=== PATIENT | male | born 1985 | race Hispanic/Latino ===

== ENCOUNTER 2020-08-10 00:35 | Emergency (ER) | payer BC, SELFPAY ==
[2020-08-10 01:41] LABS: Absolute Lymphocytes (CBC) 3.2 K/uL (0.7-4.9); Basophils % 0.4 % (0-1.3); Hematocrit 44.3 % (39.6-49.0); Lymphocytes % 28.1 % (15.3-44.8); MPV 7.7 fL (7.6-11.3); RBC Red Blood Cell Count 4.94 M/uL (4.33-5.43)
[2020-08-10 01:42] LABS: Protime INR 0.99
[2020-08-10] MEDS ORDERED: ONDANSETRON 4 MG/2 ML VIAL ONE (01:48)
[2020-08-10] MEDS ORDERED: MORPHINE 4 MG/ML SYR ONE (01:48)
[2020-08-10 01:56] LABS: BUN Blood Urea Nitrogen 17 mg/dL (7-18); Bicarbonate 26 mmol/L (21-32); Glucose Level 98 mg/dL (74-106); NT PRO-BNP 7 pg/mL (<125); Potassium 3.8 mmol/L (3.5-5.1); Sodium Level 139 mmol/L (136-145); Troponin (Emerg Dept Use Only) < 0.02 ng/mL (0.0-0.045)
--- NOTE | 2020-08-10 03:07 | ER ---
Nurse's Notes [facility] Name: Cesar Jackson Age: 35 yrs Sex: Male : 1985 Arrival Date: 08/10/2020 Time: 00:37 Bed 14 Private MD: Diagnosis: Chest pain, unspecified Presentation: 08/10 01:03 Chief complaint: Patient states: he started having chest and back pain earlier today bb which got worse tonight when he lay down. Coronavirus screen: At this time, the client does not indicate any symptoms associated with coronavirus-19. Ebola Screen: No symptoms or risks identified at this time. Initial Sepsis Screen: Does the patient meet any 2 criteria? RR > 20 per min. Does the patient have a suspected source of infection? No. Patient's initial sepsis screen is negative. Risk Assessment: Do you want to hurt yourself or someone else? Patient reports no desire to harm self or others. Onset of symptoms was August 09, 2020. 01:03 Method Of Arrival: Ambulatory bb 01:03 Acuity: EDUARDO 3 bb Historical: - Allergies: 01:06 No Known Allergies; bb - Home Meds: 01:06 Lisinopril Oral [Active]; bb - PMHx: 01:06 Hypertension; bb - PSHx: 01:06 Elbow surgery; bb - Immunization history:: Adult Immunizations up to date. - Social history:: Smoking status: Patient reports the use of cigarette tobacco products, denies chronic smoking, but will smoke occasionally, Patient uses alcohol, occasionally. Patient/guardian denies using street drugs. - Family history:: not pertinent. - Hospitalizations: : No recent hospitalization is reported. Screenin:10 Abuse screen: Denies threats or abuse. Nutritional screening: No deficits noted. jb4 Tuberculosis screening: No symptoms or risk factors identified. Fall Risk None identified. Assessment: 01:10 General: Appears in no apparent distress. uncomfortable, Behavior is calm, cooperative, jb4 appropriate for age. Pain: Complains of pain in chest Pain does not radiate. Pain currently is 8 out of 10 on a pain scale. Quality of pain is described as sharp, stabbing. Neuro: Level of Consciousness is awake, alert, obeys commands, Oriented to person, place, time, situation. Cardiovascular: Patient's skin is warm and dry. Respiratory: Airway is patent Respiratory effort is even, unlabored, Respiratory pattern is regular, symmetrical. GI: No signs and/or symptoms were reported involving the gastrointestinal system. : No signs and/or symptoms were reported regarding the genitourinary system. EENT: No signs and/or symptoms were reported regarding the EENT system. Derm: Skin is intact, Skin is pink, warm \T\ dry. Musculoskeletal: Circulation, motion, and sensation intact. Range of motion: intact in all extremities. 01:50 Reassessment: Patient appears in no apparent distress at this time. Patient and/or jb4 family updated on plan of care and expected duration. Pain level reassessed. Patient is alert, oriented x 3, equal unlabored respirations, skin warm/dry/pink. 04:00 Reassessment: Patient appears in no apparent distress at this time. Patient and/or jb4 family updated on plan of care and expected duration. Pain level reassessed. Patient is alert, oriented x 3, equal unlabored respirations, skin warm/dry/pink. Vital Signs: 01:03 BP 141 / 104; Pulse 87; Resp 22 S; Temp 98.6(O); Pulse Ox 98% on R/A; Weight 113.4 kg bb (R); Height 5 ft. 6 in. (167.64 cm) (R); Pain 8/10; 01:45 BP 122 / 90; Pulse 81; Resp 20; Pulse Ox 95% on R/A; jb4 03:45 BP 140 / 90; Pulse 64; Resp 16; Pulse Ox 95% on R/A; jb4 01:03 Body Mass Index 40.35 (113.40 kg, 167.64 cm) bb ED Course: 00:37 Patient arrived in ED. cl3 00:53 Brant Moss MD is Attending Physician. rn 01:05 Triage completed. bb 01:06 Arm band placed on Patient placed in an exam room, on a stretcher, on weigher production, bb on pulse oximetry. EKG completed in triage. Results shown to MD. 01:10 Patient has correct armband on for positive identification. territory outside sales manager on. Pulse jb4 ox on. NIBP on. 01:10 Patient maintains SpO2 saturation greater than 95% on room air. jb4 01:18 Inserted saline lock: 20 gauge in right antecubital area, using aseptic technique. jb5 Blood collected. 01:19 Basic Metabolic Panel Sent. jb5 01:19 CBC with Diff Sent. jb5 01:19 NT PRO-BNP Sent. jb5 01:19 PT-INR Sent. jb5 01:19 Troponin (emerg Dept Use Only) Sent. jb5 01:31 Lio Sams, RN is Primary Nurse. jb4 01:49 XRAY Chest (1 view) In Process Unspecified. EDMS 02:37 CT Chest For PE Angio In Process Unspecified. EDMS 04:02 No provider procedures requiring assistance completed. IV discontinued, intact, jb4 bleeding controlled, No redness/swelling at site. Pressure dressing applied. Administered Medications: 01:40 Drug: Zofran (Ondansetron) 4 mg Route: IVP; Site: right antecubital; jb4 02:10 Follow up: Response: No adverse reaction jb4 01:43 Drug: morphine 4 mg Route: IVP; Site: right antecubital; jb4 02:10 Follow up: Response: No adverse reaction; Pain is decreased; RASS: Alert and Calm (0) jb4 03:54 Drug: Decadron - Dexamethasone 10 mg Route: IVP; Site: right antecubital; jb4 03:55 Follow up: Response: No adverse reaction; Medication administered at discharge. jb4 03:54 Drug: [place] 5 mg-325 mg 1 tabs Route: PO; jb4 03:55 Follow up: Response: Medication administered at discharge. jb4 03:54 Drug: TORadol - Ketorolac 15 mg Route: IVP; Site: right antecubital; jb4 03:55 Follow up: Response: Medication administered at discharge. jb4 Outcome: 03:06 Discharge ordered by . rn 04:02 Discharged to home with family. jb4 04:02 Condition: stable 04:02 Discharge instructions given to patient, Instructed on discharge instructions, follow up and referral plans. medication usage, Demonstrated understanding of instructions, follow-up care, medications, Prescriptions given X 2. 04:03 Patient left the ED. jb4 Signatures: Dispatcher [employer] EDЮлия Pavon RN RN bb Nieto, Roman, MD MD rn Bryson, James, RN RN jb4 Caryl Good jb5 Filomena Hamm 3
--- NOTE | 2020-08-10 03:07 | EDPHYS ---
Physician Documentation [facility] Name: Cesar Jackson Age: 35 yrs Sex: Male : 1985 Arrival Date: 08/10/2020 Time: 00:37 Bed 14 Private MD: ED Physician Brant Moss HPI: 08/10 01:40 This 35 yrs old Male presents to ER via Ambulatory with complaints of Chest rn Pain. 01:40 The patient or guardian reports chest pain that is located primarily in the substernal rn area. The pain radiates to back. Associated signs and symptoms: Pertinent positives: None. Pertinent negatives: abdominal pain, cough, diaphoresis, shortness of breath, syncope, vomiting. The chest pain is described as sharp. Duration: The patient or guardian reports multiple episodes, that are intermittent. Modifying factors: The symptoms are alleviated by leaning forward. the symptoms are aggravated by movement, laying down on back. Severity of pain: At its worst the pain was moderate in the emergency department the pain is unchanged. The patient has not experienced similar symptoms in the past. The patient has not recently seen a physician. Sudden onset left chest pain, radiates to back, no trauma, reports occasional smoker, no cough, does not feel ill. . Historical: - Allergies: 01:06 No Known Allergies; bb - Home Meds: 01:06 Lisinopril Oral [Active]; bb - PMHx: 01:06 Hypertension; bb - PSHx: 01:06 Elbow surgery; bb - Immunization history:: Adult Immunizations up to date. - Social history:: Smoking status: Patient reports the use of cigarette tobacco products, denies chronic smoking, but will smoke occasionally, Patient uses alcohol, occasionally. Patient/guardian denies using street drugs. - Family history:: not pertinent. - Hospitalizations: : No recent hospitalization is reported. ROS: 01:40 Constitutional: Negative for fever, chills, and weight loss, Eyes: Negative for injury, rn pain, redness, and discharge, Neck: Negative for injury, pain, and swelling, Cardiovascular: Negative for palpitations, and edema, Respiratory: Negative for shortness of breath, cough, wheezing Abdomen/GI: Negative for abdominal pain, nausea, vomiting, diarrhea, and constipation, Back: Negative for injury : Negative for injury, bleeding, discharge, and swelling, MS/Extremity: Negative for injury and deformity, Skin: Negative for injury, rash, and discoloration, Neuro: Negative for headache, weakness, numbness, tingling, and seizure. Exam: 01:20 ECG was reviewed by the Attending Physician. rn 01:40 Constitutional: This is a well developed, well nourished patient who is awake, alert, rn and in no acute distress. Ambulatory to room without difficulty or assistance. Head/Face: Normocephalic, atraumatic. Eyes: Pupils equal round and reactive to light, extra-ocular motions intact. Lids and lashes normal. Conjunctiva and sclera are non-icteric and not injected. Cornea within normal limits. Periorbital areas with no swelling, redness, or edema. Neck: Trachea midline, no masses palpated, and no cervical lymphadenopathy. Supple, full range of motion without nuchal rigidity, or vertebral point tenderness. No Meningismus. Cardiovascular: Regular rate and rhythm. No pulse deficits. Respiratory: + mild tachypnea, no retractions Abdomen/GI: soft, non-tender Back: No spinal tenderness. No costovertebral tenderness. Full range of motion. Skin: Warm, dry with normal turgor. Normal color with no rashes, no lesions, and no evidence of cellulitis. MS/ Extremity: Pulses equal, no cyanosis. Neurovascular intact. Full, normal range of motion. Equal circumference. Neuro: Awake and alert, GCS 15, oriented to person, place, time, and situation. Cranial nerves II-XII grossly intact. Motor strength 5/5 in all extremities. Sensory grossly intact. Cerebellar exam normal. Normal gait. Vital Signs: 01:03 BP 141 / 104; Pulse 87; Resp 22 S; Temp 98.6(O); Pulse Ox 98% on R/A; Weight 113.4 kg bb (R); Height 5 ft. 6 in. (167.64 cm) (R); Pain 8/10; 01:45 BP 122 / 90; Pulse 81; Resp 20; Pulse Ox 95% on R/A; jb4 03:45 BP 140 / 90; Pulse 64; Resp 16; Pulse Ox 95% on R/A; jb4 01:03 Body Mass Index 40.35 (113.40 kg, 167.64 cm) bb MDM: 00:53 Patient medically screened. rn 03:05 Differential diagnosis: acute myocardial infarction, acute pericarditis, anxiety, rn coronary artery disease chest wall pain, costochondritis, esophagitis, gastritis, gastroesophageal reflux disease (GERD), pericarditis, pleurisy, pneumonia, pneumothorax, pulmonary embolus. Data reviewed: vital signs, nurses notes, lab test result(s), EKG, radiologic studies, CT scan, plain films, and as a result, I will discharge patient. Counseling: I had a detailed discussion with the patient and/or guardian regarding: the historical points, exam findings, and any diagnostic results supporting the discharge/admit diagnosis, lab results, radiology results, the need for outpatient follow up, to return to the emergency department if symptoms worsen or persist or if there are any questions or concerns that arise at home. Response to treatment: the patient's symptoms have markedly improved after treatment, and as a result, I will discharge patient. Special discussion: Based on the patient's history, exam, and Dx evaluation, there is no indication for emergent intervention or inpatient Tx. It is understood by the patient/guardian that if the Sx's persist or worsen they need to return immediately for re-evaluation. I discussed with the patient/guardian in detail that at this point there is no indication for admission to the hospital. It is understood, however, that if the symptoms persist or worsen the patient needs to return immediately for re-evaluation. ED course: No acute findings in blood/ecg/trop/ct chest, counseled to stop smoking, will dc home with steroids and pain medication for symptomatic treatment, return precautions given and understood.. 08/10 01:01 Order name: Basic Metabolic Panel; Complete Time: rn 08/10 01:01 Order name: CBC with Diff; Complete Time: rn 08/10 01:01 Order name: NT PRO-BNP; Complete Time: rn 08/10 01:01 Order name: PT-INR; Complete Time: rn 08/10 01:01 Order name: Troponin (emerg Dept Use Only); Complete Time: rn 08/10 01:39 Order name: CREATININE WHOLE BLOOD; Complete Time: EDMS 08/10 01:01 Order name: XRAY Chest (1 view) rn 08/10 01:01 Order name: EKG; Complete Time: :02 rn 08/10 01:01 Order name: CT Chest For PE Angio rn 08/10 01:01 Order name: Cardiac monitoring; Complete Time: :19 rn 08/10 01:01 Order name: EKG - Nurse/Tech; Complete Time: : rn 08/10 01:01 Order name: IV Saline Lock; Complete Time: : rn 08/10 01:01 Order name: Labs collected and sent; Complete Time: rn 08/10 01:01 Order name: O2 Per Protocol; Complete Time: rn 08/10 01:01 Order name: O2 Sat Monitoring; Complete Time: rn EC: Rate is 81 beats/min. Rhythm is regular. QRS [place] is Normal. VA interval is normal. QRS rn interval is normal. QT interval is normal. No Q waves. T waves are Normal. No ST changes noted. Clinical impression: Normal ECG. Interpreted by me. Reviewed by me. Administered Medications: 01:40 Drug: Zofran (Ondansetron) 4 mg Route: IVP; Site: right antecubital; jb4 02:10 Follow up: Response: No adverse reaction jb4 01:43 Drug: morphine 4 mg Route: IVP; Site: right antecubital; jb4 02:10 Follow up: Response: No adverse reaction; Pain is decreased; RASS: Alert and Calm (0) jb4 03:54 Drug: Decadron - Dexamethasone 10 mg Route: IVP; Site: right antecubital; jb4 03:55 Follow up: Response: No adverse reaction; Medication administered at discharge. jb4 03:54 Drug: [place] 5 mg-325 mg 1 tabs Route: PO; jb4 03:55 Follow up: Response: Medication administered at discharge. jb4 03:54 Drug: TORadol - Ketorolac 15 mg Route: IVP; Site: right antecubital; jb4 03:55 Follow up: Response: Medication administered at discharge. jb4 Disposition: 08/10/20 03:06 Discharged to Home. Impression: Chest pain, unspecified. - Condition is Stable. - Discharge Instructions: Nonspecific Chest Pain, Pain Without a Known Cause. - Prescriptions for Tramadol 50 mg Oral Tablet - take 1 tablet by ORAL route every 8 hours as needed; 15 tablet. Medrol ([place]) 4 mg Oral Tablets, Dose Pack - take 1 tablet by ORAL route as directed - follow package instructions; 1 packet. - Medication Reconciliation Form, Thank You Letter, Antibiotic Education, Prescription Opioid Use form. - Follow up: Private Physician; When: As needed; Reason: Recheck today's complaints, Re-evaluation by your physician. - Problem is new. - Symptoms have improved. Signatures: Dispatcher [employer] EDЮлия Pavon RN RN bb Nieto, Roman, MD MD rn Bryson, James, RN RN jb4 Corrections: (The following items were deleted from the chart) 04:03 03:06 08/10/2020 03:06 Discharged to Home. Impression: Chest pain, unspecified. jb4 Condition is Stable. Forms are Medication Reconciliation Form, Thank You Letter, Antibiotic Education, Prescription Opioid Use. Follow up: Private Physician; When: As needed; Reason: Recheck today's complaints, Re-evaluation by your physician. Problem is new. Symptoms have improved. rn
[2020-08-10] MEDS ORDERED: dexAMETHasone 10 MG/ML VIAL ONE (03:58)
[2020-08-10] MEDS ORDERED: HYDROCODONE/APAP 5/325 MG TAB ONE (03:58)
[2020-08-10] MEDS ORDERED: KETOROLAC 30 MG/ML INJ ONE (03:58)
[2020-08-10 04:12] VITALS: TEMP 98.6
[2020-08-10 04:13] VITALS: O2SAT 95
[2020-08-10 04:15] VITALS: BP 140/90
--- NOTE | 2020-08-10 08:34 | RAD REPORT ---
EXAM DESCRIPTION: RAD - Chest Single View - 08/10/2020 1:49 am CLINICAL HISTORY: CHEST PAIN Chest pain. COMPARISON: Chest Single View dated 12/05/2016; Chest For Pe Angio dated 08/10/2020 FINDINGS: Portable technique limits examination quality. The lungs are grossly clear. The heart is mildly enlarged in size. No displaced fractures.
--- NOTE | 2020-08-10 13:54 | RAD REPORT ---
EXAM DESCRIPTION: Chest For Pe Angio CLINICAL HISTORY: CHEST PAIN COMPARISON: 12/05/2016 TECHNIQUE: CTA of the chest obtained following the uncomplicated intravenous administration of iodin ated contrast. 3-D/MIP reformatted images of the chest available for evaluation. FINDINGS: Chest: Pulmonary arteries: Contrast bolus is adequate.No filling defects identified in the pulmonary arterie s to suggest pulmonary embolus. Thyroid: No abnormalities of the visualized thyroid. Great Vessels: Great vessels have normal anatomic configuration. Thoracic Aorta: No abnormalities of the thoracic aorta identified. Heart: Cardiomegaly. No coronary artery atherosclerosis or pericardial effusion. Lymph Nodes: No enlarged mediastinal lymph nodes identified. Esophagus: No abnormalities of the esophagus identified. Other: No additional findings. Lungs: No airspace opacities identified. Respiratory motion artifact. Pleura: No pleural effusion or pneumothorax. Trachea/Airways: No abnormalities of the visualized trachea or airways. Bones: No destructive osseous lesions. Upper Abdomen: Limited images of the upper abdomen demonstrate no definite abnormalities of visualize d portions of the liver, gallbladder, pancreas, spleen, adrenal glands, or kidneys. IMPRESSION: 1. No pulmonary embolism. 2. Cardiomegaly. This exam was performed according to our departmental dose-optimization program, which includes autom ated exposure control, adjustment of the mA and/or kV according to patient size and/or use of iterati ve reconstruction technique. Electronically signed by: Drew Bowens 08/10/2020 2:53 AM [employer] Due to temporary technical issues with the PACS/Fluency reporting system, reports are being signed by the in house radiologists without review as a courtesy to insure prompt reporting. The interpreting radiologist is fully responsible for the content of the report.
--- NOTE | 2020-08-13 07:52 | EKG ---
Test Date: 2020-08-10 Test Time: 01:06:10 Lot Porter: SHAY MEASUREMENT RESULTS: Intervals: Rate: 81 MN: 156 QRSD: 84 QT: 342 QTc: 397 [place]: P: 33 MN: 156 QRS: 5 T: 27 INTERPRETIVE STATEMENTS: Normal sinus rhythm Normal ECG Compared to ECG 12/05/2016 10:39:22 No significant changes Electronically Signed On 08-13-20 07:42:21 SURG RN by Zacarias Vargas
== END 2020-08-10 04:03 | disposition home or self-care (01) ==
LOC: ER 00:35
DX: R07.9 Chest pain, unspecified (principal); I10 Essential (primary) hypertension; Z72.0 Tobacco use
CPT/HCPCS: 36415; 71045; 71275; 80048; 82565; 83880; 84484; 85025; 85610; 93005; 96374; 96375; 99285; J1100; J2405; Q9967

== ENCOUNTER 2021-10-21 23:17 | Emergency (ER) | payer BC, SELFPAY ==
[2021-10-22 00:09] LABS: Urine Blood Negative (Negative); Urine Glucose Negative (Negative); Urine Protein Negative (Negative); Urine Specific Gravity >=1.030 (1.005-1.030); Urine pH 5.5 (5.0-7.0)
[2021-10-22 00:21] LABS: Hematocrit 40.6 % (39.6-49.0); Lymphocytes % 35.5 % (15.3-44.8); RBC Red Blood Cell Count 4.57 M/uL (4.33-5.43)
[2021-10-22 00:31] LABS: Barbiturates NEGATIVE (NEGATIVE); Benzodiazepines NEGATIVE (NEGATIVE); Cocaine NEGATIVE (NEGATIVE); METHAMPHETAM NEGATIVE (NEGATIVE); Methadone NEGATIVE (NEGATIVE); Opiates NEGATIVE (NEGATIVE); Phencyclidine NEGATIVE (NEGATIVE); THC Cannibis NEGATIVE (NEGATIVE)
[2021-10-22 00:36] LABS: ALT/SGPT 39 U/L (12-78); AST/SGOT 12 U/L (15-37); Albumin 3.4 g/dL (3.4-5.0); Alkaline Phosphatase 73 U/L (45-117); BUN Blood Urea Nitrogen 13 mg/dL (7-18); Bicarbonate 25 mmol/L (21-32); Bilirubin Direct < 0.1 mg/dL (0-0.2); Bilirubin Total 0.3 mg/dL (0.2-1.0); Glucose Level 104 mg/dL (74-106); Magnesium 2.1 mg/dL (1.8-2.4); NT PRO-BNP 15 pg/mL (<125); Potassium 3.9 mmol/L (3.5-5.1); Protein, Total 6.9 g/dL (6.4-8.2); Sodium Level 137 mmol/L (136-145)
[2021-10-22 00:40] LABS: Protime INR 0.99
[2021-10-22 01:38] LABS: SARS-COV-2 RT PCR NEGATIVE (NEGATIVE)
--- NOTE | 2021-10-22 01:41 | EDPHYS ---
Physician Documentation [facility] Name: Cesar Jackson Age: 36 yrs Sex: Male : 1985 Arrival Date: 10/21/2021 Time: 23:22 Bed 25 Private MD: ED Physician Jose Abebe HPI: 10/21 23:45 This 36 yrs old Male presents to ER via Ambulatory with complaints of pm1 Shortness of breath. 23:45 The patient has shortness of breath at rest. Onset: The symptoms/episode began/occurred pm1 today. Duration: The symptoms are continuous. The patient's shortness of breath has no apparent modifying factors. Associated signs and symptoms: Pertinent negatives: chest pain, non-productive cough, productive cough, diaphoresis, dizziness, fever, nausea, vomiting. Severity of symptoms: in the emergency department the symptoms are unchanged. The patient has not experienced similar symptoms in the past. The patient has not recently seen a physician. Patient reports feeling shortness of breath even when he takes a deep breath. Historical: - Allergies: 23:30 No Known Allergies; tw5 - Home Meds: 23:30 lisinopril 10 mg Oral tab 1 tab once daily [Active]; tw5 - PMHx: 23:30 Hypertension; tw5 - PSHx: 23:30 Left elbow surgery- 2014; tw5 - Immunization history:: Flu vaccine is not up to date. - Social history:: Smoking status: Reported history of juuling and/or vaping. ROS: 23:45 Constitutional: Negative for fever, chills, and weight loss, Cardiovascular: Negative pm1 for chest pain, palpitations, and edema. 23:45 Abdomen/GI: Negative for abdominal pain, nausea, vomiting, diarrhea, and constipation, Back: Negative for injury and pain, MS/Extremity: Negative for injury and deformity, Skin: Negative for injury, rash, and discoloration, Neuro: Negative for headache, weakness, numbness, tingling, and seizure. 23:45 Respiratory: Positive for shortness of breath, Negative for cough. 23:45 All other systems are negative. Exam: 23:45 Constitutional: This is a well developed, well nourished patient who is awake, alert, pm1 and in no acute distress. Head/Face: Normocephalic, atraumatic. 23:45 Back: No spinal tenderness. No costovertebral tenderness. Full range of motion. Skin: Warm, dry with normal turgor. Normal color with no rashes, no lesions, and no evidence of cellulitis. MS/ Extremity: Pulses equal, no cyanosis. Neurovascular intact. Full, normal range of motion. 23:45 Eyes: Exam is negative for acute changes, Extraocular movements: no acute changes, Conjunctiva: no acute changes, no injection. 23:45 ENT: Exam is negative for acute changes, Mouth: no acute changes, Lips: normal, moist, Oral mucosa: normal, pink and intact, moist. 23:45 Cardiovascular: Exam negative for acute changes, Rate: normal, Rhythm: regular, Pulses: no pulse deficits are appreciated, Heart sounds: normal, normal S1and S2. 23:45 Respiratory: Exam negative for acute changes, respiratory distress, shortness of breath, Breath sounds: are clear throughout. 23:45 Abdomen/GI: Exam negative for acute changes, Inspection: abdomen appears normal, Palpation: abdomen is soft and non-tender, in all quadrants. 23:45 Neuro: Exam negative for acute changes, Orientation: is normal, Mentation: is normal, Motor: is normal, moves all fours. Vital Signs: 23:28 BP 129 / 98; Pulse 78; Resp 14; Temp 97.9(O); Pulse Ox 99% on R/A; Weight 106.59 kg; tw5 Height 5 ft. 6 in. (167.64 cm); Pain 0/10; 23:28 Body Mass Index 37.93 (106.59 kg, 167.64 cm) tw5 MDM: 23:42 Patient medically screened. pm1 10/22 00:50 ED course: Patient refused breathing treatment offered. Patient reports history of pm1 asthma . 01:40 Data reviewed: vital signs. Data interpreted: Pulse oximetry: on room air is 99 %. pm1 Interpretation: normal. Counseling: I had a detailed discussion with the patient and/or guardian regarding: the historical points, exam findings, and any diagnostic results supporting the discharge/admit diagnosis, lab results, radiology results, the need for outpatient follow up, to return to the emergency department if symptoms worsen or persist or if there are any questions or concerns that arise at home. 10/21 23:42 Order name: Basic Metabolic Panel; Complete Time: 00:49 pm1 01/23 23:42 Order name: CBC with Diff; Complete Time: 00:49 pm10/21 23:42 Order name: LFT's; Complete Time: 00:49 pm1 10/21 23:42 Order name: Magnesium; Complete Time: 00:49 pm10/21 23:42 Order name: NT PRO-BNP; Complete Time: 00:49 pm1 10/21 23:42 Order name: PT-INR; Complete Time: 00:49 pm10/21 23:42 Order name: Troponin HS; Complete Time: 00:49 pm10/21 23:42 Order name: XRAY Chest (1 view) pm1 10/21 23:42 Order name: EKG; Complete Time: 23:43 pm1 10/21 23:42 Order name: Cardiac monitoring; Complete Time: 00:05 pm10/21 23:42 Order name: D-Dimer; Complete Time: 00:49 pm1 10/21 23:42 Order name: UDS; Complete Time: 00:49 pm10/22 00:10 Order name: Urine Dipstick-Ancillary; Complete Time: 00:49 EDMS 10/22 00:15 Order name: COVID-19/FLU A+B (Document "Date of Onset" if Symptomatic); Complete Time: lp1 01:39 10/21 23:42 Order name: EKG - Nurse/Tech; Complete Time: 00:20 pm10/21 23:42 Order name: IV Saline Lock; Complete Time: 00:05 pm1 10/21 23:42 Order name: Labs collected and sent; Complete Time: 00:05 pm1 10/21 23:42 Order name: O2 Per Protocol; Complete Time: 00:05 pm10/21 23:42 Order name: O2 Sat Monitoring; Complete Time: 00:05 pm10/21 23:42 Order name: Urine Dipstick-Ancillary (obtain specimen); Complete Time: 00:20 pm1 Administered Medications: No medications were administered Disposition: 02:04 Co-signature as Attending Physician, Jose Abebe MD. pkl Disposition Summary: 10/22/21 01:40 Discharge Ordered Location: Home pm1 Problem: new pm1 Symptoms: have improved pm1 Condition: Stable pm1 Diagnosis - Shortness of breath pm1 Followup: pm1 - With: Emergency Department - When: As needed - Reason: Worsening of condition Followup: pm1 - With: Private Physician - When: 2 - 3 days - Reason: Recheck today's complaints, Continuance of care, Re-evaluation by your physician Discharge Instructions: - Discharge Summary Sheet pm1 - Shortness of Breath, Adult pm1 Forms: - Medication Reconciliation Form pm1 - Thank You Letter pm1 - Antibiotic Education pm1 - Prescription Opioid Use pm1 Prescriptions: - Ventolin HFA 90 mcg/actuation Inhalation HFA aerosol inhaler - inhale 1 puff by INHALATION route every 4-6 hours As needed; 1 Inhaler; pm1 Refills: 0, Product Selection Permitted - Medrol (Harsh) 4 mg Oral Tablets, Dose Pack - take 1 tablet by ORAL route as directed - follow package instructions; 1 pm1 packet; Refills: 0, Product Selection Permitted Signatures: Dispatcher [employer] EDJose Kemp MD MD pkRoberto Forte, EVENT LIGHTING SPECIALIST EVENT LIGHTING SPECIALIST pm1 Maddi De Los Santos tw5 Corrections: (The following items were deleted from the chart) 10/21 23:31 23:30 PSHx: None; tw5 5
--- NOTE | 2021-10-22 01:41 | ER ---
Nurse's Notes [facility] Name: Cesar Jackson Age: 36 yrs Sex: Male : 1985 Arrival Date: 10/21/2021 Time: 23:22 Bed 25 Private MD: Diagnosis: Shortness of breath Presentation: 10/21 23:28 Chief complaint: Patient states: "I dont feel like I am getting enough oxygen or air. I tw5 dont know if I am tripping, I dont do drugs. I cannot even explain it. I just feel like I am not getting enough air.". Chief complaint: Patient states: Patient continues to state "I just came here to get my oxygen level checked". Coronavirus screen: Vaccine status: Patient reports receiving the 2nd dose of the covid vaccine. [employer]. Ebola Screen: Patient negative for fever greater than or equal to 101.5 degrees Fahrenheit, and additional compatible Ebola Virus Disease symptoms Patient denies exposure to infectious person. Patient denies travel to an Ebola-affected area in the 21 days before illness onset. Initial Sepsis Screen: Does the patient meet any 2 criteria? No. Patient's initial sepsis screen is negative. Does the patient have a suspected source of infection? No. Patient's initial sepsis screen is negative. Risk Assessment: Do you want to hurt yourself or someone else? Patient reports no desire to harm self or others. Onset of symptoms was October 21, 2021. 23:28 Method Of Arrival: Ambulatory tw5 23:28 Acuity: EDUARDO 4 tw5 Triage Assessment: 23:30 General: Appears in no apparent distress. Behavior is calm, cooperative, appropriate tw5 for age. Pain: Denies pain. Respiratory: Reports shortness of breath " Just when I was trying to go to sleep" Onset: The symptoms/episode began/occurred suddenly, the patient has mild shortness of breath. Historical: - Allergies: 23:30 No Known Allergies; tw5 - Home Meds: 23:30 lisinopril 10 mg Oral tab 1 tab once daily [Active]; tw5 - PMHx: 23:30 Hypertension; tw5 - PSHx: 23:30 Left elbow surgery- 2014; tw5 - Immunization history:: Flu vaccine is not up to date. - Social history:: Smoking status: Reported history of juuling and/or vaping. Screenin/24 01:59 Abuse screen: Denies threats or abuse. Nutritional screening: No deficits noted. sf1 Tuberculosis screening: No symptoms or risk factors identified. Fall Risk None identified. Assessment: 02:00 Cardiovascular: No deficits noted. Rhythm is regular. Respiratory: Airway is patent sf1 Respiratory effort is even, unlabored, Breath sounds are clear. Vital Signs: 10/21 23:28 BP 129 / 98; Pulse 78; Resp 14; Temp 97.9(O); Pulse Ox 99% on R/A; Weight 106.59 kg; tw5 Height 5 ft. 6 in. (167.64 cm); Pain 0/10; 23:28 Body Mass Index 37.93 (106.59 kg, 167.64 cm) tw5 ED Course: 23:22 Patient arrived in ED. ja2 23:30 Triage completed. tw5 23:30 Arm band placed on left wrist. tw5 23:36 Roberto Castillo NP is PHCP. pm1 23:36 Jose Abebe MD is Attending Physician. pm1 23:56 Shiela Barron RN is Primary Nurse. sf1 23:56 Inserted saline lock: 20 gauge in left antecubital area, using aseptic technique. sf1 10/22 00:04 Troponin HS Sent. sf1 00:04 PT-INR Sent. sf1 00:04 NT PRO-BNP Sent. sf1 00:04 Magnesium Sent. sf1 00:05 LFT's Sent. sf1 00:05 CBC with Diff Sent. sf1 00:05 Basic Metabolic Panel Sent. sf1 00:05 D-Dimer Sent. sf1 00:05 UDS Sent. sf1 00:11 XRAY Chest (1 view) In Process Unspecified. EDMS 00:47 COVID-19/FLU A+B (Document "Date of Onset" if Symptomatic) Sent. sf1 01:59 Patient has correct armband on for positive identification. Bed in low position. sf1 01:59 No provider procedures requiring assistance completed. IV discontinued, intact, sf1 bleeding controlled, No redness/swelling at site. Pressure dressing applied. Administered Medications: No medications were administered Outcome: 01:40 Discharge ordered by . pm1 01:59 Discharged to home ambulatory. sf1 01:59 Condition: good 01:59 Discharge instructions given to patient, Instructed on discharge instructions, follow up and referral plans. Demonstrated understanding of instructions, follow-up care, medications, Prescriptions given X 2. 02:00 Patient left the ED. sf1 Signatures: Dispatcher [employer] EDMS Roberto Castillo NP CARTON LINER pm1 Lissa Lantigua Tiffany tw5 Shiela Barron RN RN sf1 Corrections: (The following items were deleted from the chart) 10/21 23:31 23:30 PSHx: None; tw5 tw5
--- NOTE | 2021-10-22 08:03 | EKG ---
Test Date: 2021-10-22 Test Time: 00:16:45 Propeller Tester: MEASUREMENT RESULTS: Intervals: Rate: 68 UT: 158 QRSD: 86 QT: 376 QTc: 399 [place]: P: 41 UT: 158 QRS: 31 T: 25 INTERPRETIVE STATEMENTS: Normal sinus rhythm with sinus arrhythmia Normal ECG Compared to ECG 08/10/2020 01:06:10 No significant changes Electronically Signed On 10-22-21 08:02:42 CRACKING STILL OPERATOR by Zacarias Vargas
--- NOTE | 2021-10-22 08:29 | RAD REPORT ---
EXAM DESCRIPTION: RAD - Chest Single View - 10/22/2021 12:03 am CLINICAL HISTORY: SOB COMPARISON: Chest Single View dated 08/10/2020; Chest Single View dated 12/05/2016 FINDINGS: Lines: None. Lungs: No evidence of edema or pneumonia. Pleural: No significant pleural effusions or pneumothorax. Cardiac: The heart size is within normal limits. Bones: No acute fractures. Other: IMPRESSION: No acute cardiopulmonary disease.
[2021-10-22 18:11] VITALS: BP 129/98; TEMP 97.9; O2SAT 99
== END 2021-10-22 02:00 | disposition home or self-care (01) ==
LOC: ER 23:17
DX: R06.02 Shortness of breath (principal); I10 Essential (primary) hypertension; Z20.822 Contact with and (suspected) exposure to COVID-19
CPT/HCPCS: 93005; 85025; 80048; 36415; 83735; 85610; 85379; 80076; 81003; 84484; 83880; 0240U; 80307; 71045; 99284

== ENCOUNTER 2022-01-24 18:54 | Emergency (ER) | payer BC ==
[2022-01-24 19:35] LABS: Urine Blood Trace-intact (Negative); Urine Glucose Negative (Negative); Urine Protein 1+ (Negative); Urine Specific Gravity >=1.030 (1.005-1.030); Urine pH 5.5 (5.0-7.0)
[2022-01-24 19:41] LABS: Absolute Lymphocytes (CBC) 3.1 K/uL (0.7-4.9); Hematocrit 43.2 % (39.6-49.0); Lymphocytes % 30.1 % (15.3-44.8); MPV 7.4 fL (7.6-11.3); RBC Red Blood Cell Count 4.92 M/uL (4.33-5.43)
[2022-01-24 20:08] LABS: ALT/SGPT 88 U/L (12-78); AST/SGOT 29 U/L (15-37); Albumin 3.9 g/dL (3.4-5.0); Alkaline Phosphatase 77 U/L (45-117); BUN Blood Urea Nitrogen 17 mg/dL (7-18); Bicarbonate 27 mmol/L (21-32); Bilirubin Total 0.3 mg/dL (0.2-1.0); Glucose Level 125 mg/dL (74-106); Lipase 137 U/L (73-393); Protein, Total 7.7 g/dL (6.4-8.2); Sodium Level 137 mmol/L (136-145)
--- NOTE | 2022-01-24 20:31 | RAD REPORT ---
EXAM DESCRIPTION: CTAbdomen Pelvis W Contrast - 01/24/2022 8:23 pm CLINICAL HISTORY: Abdominal pain. Abdominal pain, acute, nonlocalized COMPARISON: No comparisons TECHNIQUE: Biphasic CT imaging of the abdomen and pelvis was performed with 100 ml non-ionic IV cont rast. All CT scans are performed using dose optimization technique as appropriate and may include automated exposure control or mA/KV adjustment according to patient size. FINDINGS: The lung bases are clear. The liver, spleen, pancreas, adrenal glands and kidneys are within normal limits. No bowel obstruction, free air, free fluid or abscess. Small fat containing umbilical hernia. The sakina endix is normal. No evidence of significant lymphadenopathy. No suspicious bony findings. IMPRESSION: No acute intra-abdominal or pelvic finding.
--- NOTE | 2022-01-25 00:06 | ER ---
Nurse's Notes [facility] Name: Cesar Jackson Age: 36 yrs Sex: Male : 1985 Arrival Date: 01/24/2022 Time: 18:58 Bed 12 Private MD: Diagnosis: GI Bleed/ Gastrointestinal hemorrhage, unspecified-Lower GI Presentation: 01/24 19:04 Chief complaint: Patient states: States the bottom of my stomach all the way to my back ll3 hurts for the past 4 days 03/08, c/o bloody stool. Coronavirus screen: Vaccine status: Patient reports receiving the 2nd dose of the covid vaccine. At this time, the client does not indicate any symptoms associated with coronavirus-19. Ebola Screen: No symptoms or risks identified at this time. Initial Sepsis Screen: Does the patient meet any 2 criteria? No. Patient's initial sepsis screen is negative. Does the patient have a suspected source of infection? No. Patient's initial sepsis screen is negative. Risk Assessment: Do you want to hurt yourself or someone else? Patient reports no desire to harm self or others. Onset of symptoms was January 20, 2022. 19:04 Method Of Arrival: Ambulatory ll3 19:04 Acuity: EDUARDO 3 ll3 Triage Assessment: 19:07 General: Appears uncomfortable, Behavior is calm, cooperative. Pain: Complains of pain ll3 in right lower quadrant and left lower quadrant Pain radiates to left low back and right low back Pain currently is 6 out of 10 on a pain scale. Aggravated by eating. GI: Abdomen is round non-distended, Bowel sounds present X 4 quads. Abd is soft and non tender X 4 quads. Reports lower abdominal pain, bloating, rectal bleeding, Pt states when eating stomach feels hard and distended. Derm: Skin is pink, warm \\T\\ dry. Historical: - Allergies: 19:07 No Known Allergies; ll3 - Home Meds: 19:07 lisinopril 10 mg Oral tab 1 tab once daily [Active]; ll3 - PMHx: 19:07 Hypertension; ll3 - PSHx: 19:07 Left elbow surgery- 2015; ll3 - Immunization history:: Client reports receiving the 2nd dose of the Covid vaccine. - Social history:: Smoking status: Reported history of juuling and/or vaping. Screenin:22 Abuse screen: Denies threats or abuse. Denies injuries from another. Nutritional ld1 screening: No deficits noted. Tuberculosis screening: No symptoms or risk factors identified. Fall Risk None identified. Assessment: 19:22 General: Appears in no apparent distress. comfortable, Behavior is calm, cooperative, ld1 appropriate for age. Pain: Complains of pain in right lower quadrant and left lower quadrant Pain does not radiate. Pain currently is 8 out of 10 on a pain scale. Quality of pain is described as throbbing. Neuro: Level of Consciousness is awake, alert, obeys commands, Oriented to person, place, time, situation. Cardiovascular: Capillary refill < 3 seconds Patient's skin is warm and dry. Respiratory: Airway is patent Respiratory effort is even, unlabored. GI: Abdomen is round non-distended, Reports lower abdominal pain. : No signs and/or symptoms were reported regarding the genitourinary system. EENT: No signs and/or symptoms were reported regarding the EENT system. Derm: No signs and/or symptoms reported regarding the dermatologic system. Musculoskeletal: No signs and/or symptoms reported regarding the musculoskeletal system. 21:56 Reassessment: Patient appears in no apparent distress at this time. Patient and/or ld1 family updated on plan of care and expected duration. Pain level reassessed. Patient is alert, oriented x 3, equal unlabored respirations, skin warm/dry/pink. 23:30 Reassessment: Patient appears in no apparent distress at this time. No changes from ld1 previously documented assessment. Patient and/or family updated on plan of care and expected duration. Pain level reassessed. Patient is alert, oriented x 3, equal unlabored respirations, skin warm/dry/pink. 01/25 00:17 Pain: Complains of pain in epigastric area, right upper quadrant and left upper tw5 quadrant Pain currently is 5 out of 10 on a pain scale. Quality of pain is described as burning, Pain began. Vital Signs: 01/24 19:04 BP 143 / 97; Pulse 96; Resp 18; Temp 98.2(TE); Pulse Ox 98% on R/A; Weight 108.86 kg ll3 (R); Height 5 ft. 6 in. (167.64 cm) (R); Pain 6/10; 19:22 BP 139 / 96; Pulse 93; Resp 18; Pulse Ox 99% on R/A; Pain 8/10; ld1 21:56 BP 141 / 88; Pulse 86; Resp 18; Pulse Ox 99% on R/A; ld1 23:30 BP 139 / 78; Pulse 81; Resp 18; Pulse Ox 99% on R/A; Pain 2/10; ld1 19:04 Body Mass Index 38.74 (108.86 kg, 167.64 cm) ll3 ED Course: 18:58 Patient arrived in ED. rg4 19:07 Triage completed. ll3 19:07 Arm band placed on left wrist. ll3 19:21 Sary Tang, RN is Primary Nurse. ld1 19:22 Patient has correct armband on for positive identification. Bed in low position. Call ld1 light in reach. Side rails up X2. gas or petroleum operator on. Pulse ox on. NIBP on. Door closed. Noise minimized. Warm blanket given. 19:22 No provider procedures requiring assistance completed. Inserted saline lock: 20 gauge ld1 in left antecubital area, using aseptic technique. Blood collected. 19:24 Carlos Langston PA is PHCP. jr8 19:24 Hugo Niño MD is Attending Physician. jr8 20:24 CT Abd/Pelvis - IV Contrast Only In Process Unspecified. EDMS 01/25 00:16 COVID-19/FLU A+B/RSV (Document "Date of Onset" if Symptomatic) Sent. tw5 01:00 COVID-19/FLU A+B/RSV (Document "Date of Onset" if Symptomatic) Sent. cs9 02:00 Patient transferred, IV remains in place. tw5 Administered Medications: 00:16 Drug: ProTONIX (pantoprazole) 40 mg Route: IVP; Site: left antecubital; tw5 Outcome: 00:05 ER care complete, transfer ordered by . jr8 00:52 Transferred to [facility], Note: gave report to [facility] tw5 :59 Transferred by ground EMS Transfer form completed. Note: report given to EMS tw5 :59 Condition: stable 02:00 Patient left the ED. tw5 Signatures: Dispatcher [employer] EDMT Carlos Langston PA PA jr8 Marleny Burr rg4 Sary Tang, RN RN ld1 Maddi De Los Santos tw5 Dodie Roberts cs9 Skyler Bello RN RN ll3
--- NOTE | 2022-01-25 00:06 | EDPHYS ---
Physician Documentation [facility] Name: Cesar Jackson Age: 36 yrs Sex: Male : 1985 Arrival Date: 01/24/2022 Time: 18:58 Bed 12 Private MD: ED Physician Hugo Niño HPI: 01/24 20:01 This 36 yrs old Male presents to ER via Ambulatory with complaints of jr8 Abdominal Pain. 20:01 The patient presents with abdominal pain in the lower abdomen. Onset: The jr8 symptoms/episode began/occurred gradually, 4 day(s) ago. The symptoms do not radiate. Associated signs and symptoms: Pertinent positives: hematochezia . The symptoms are described as dull. Modifying factors: The symptoms are alleviated by nothing, the symptoms are aggravated by food. Severity of pain: At its worst the pain was moderate in the emergency department the pain is unchanged. The patient has not experienced similar symptoms in the past. The patient has not recently seen a physician. 20:06 Patient stated that he has had several bloody bowel movements over the past 4 days jr8 without any relief . Historical: - Allergies: 19:07 No Known Allergies; ll3 - Home Meds: 19:07 lisinopril 10 mg Oral tab 1 tab once daily [Active]; ll3 - PMHx: 19:07 Hypertension; ll3 - PSHx: 19:07 Left elbow surgery- 2014; ll3 - Immunization history:: Client reports receiving the 2nd dose of the Covid vaccine. - Social history:: Smoking status: Reported history of juuling and/or vaping. ROS: 20:06 Eyes: Negative for injury, pain, redness, and discharge, ENT: Negative for injury, jr8 pain, and discharge, Neck: Negative for injury, pain, and swelling, Cardiovascular: Negative for chest pain, palpitations, and edema, Respiratory: Negative for shortness of breath, cough, wheezing, and pleuritic chest pain, Back: Negative for injury and pain, MS/Extremity: Negative for injury and deformity, Skin: Negative for injury, rash, and discoloration, Neuro: Negative for headache, weakness, numbness, tingling, and seizure. 20:06 Abdomen/GI: Positive for abdominal pain, hematochezia , Negative for nausea, vomiting, and diarrhea. Exam: 20:06 Constitutional: This is a well developed, well nourished patient who is awake, alert, jr8 and in no acute distress. Cardiovascular: Regular rate and rhythm with a normal S1 and S2. No gallops, murmurs, or rubs. Normal PMI, no JVD. No pulse deficits. Respiratory: Lungs have equal breath sounds bilaterally, clear to auscultation and percussion. No rales, rhonchi or wheezes noted. No increased work of breathing, no retractions or nasal flaring. Abdomen/GI: Soft, non-tender, with normal bowel sounds. No distension or tympany. No guarding or rebound. No evidence of tenderness throughout. Back: No spinal tenderness. No costovertebral tenderness. Full range of motion. Skin: Warm, dry with normal turgor. Normal color with no rashes, no lesions, and no evidence of cellulitis. MS/ Extremity: Pulses equal, no cyanosis. Neurovascular intact. Full, normal range of motion. Neuro: Awake and alert, GCS 15, oriented to person, place, time, and situation. Cranial nerves II-XII grossly intact. Motor strength 5/5 in all extremities. Sensory grossly intact. Vital Signs: 19:04 BP 143 / 97; Pulse 96; Resp 18; Temp 98.2(TE); Pulse Ox 98% on R/A; Weight 108.86 kg ll3 (R); Height 5 ft. 6 in. (167.64 cm) (R); Pain 6/10; 19:22 BP 139 / 96; Pulse 93; Resp 18; Pulse Ox 99% on R/A; Pain 8/10; ld1 21:56 BP 141 / 88; Pulse 86; Resp 18; Pulse Ox 99% on R/A; ld1 23:30 BP 139 / 78; Pulse 81; Resp 18; Pulse Ox 99% on R/A; Pain 2/10; ld1 19:04 Body Mass Index 38.74 (108.86 kg, 167.64 cm) ll3 MDM: 19:25 Patient medically screened. jr8 01/25 00:03 Data reviewed: vital signs, nurses notes, lab test result(s), radiologic studies, CT jr8 scan. Data interpreted: Pulse oximetry: on room air is 99 %. Interpretation: normal. Counseling: I had a detailed discussion with the patient and/or guardian regarding: the historical points, exam findings, and any diagnostic results supporting the discharge/admit diagnosis, lab results, radiology results, the need to transfer to another facility, [facility] does not immediately have the required specialist. ED course: No GI available. [facility] patient for further evaluation . 01/24 19:22 Order name: CBC with Diff; Complete Time: 19:55 ld1 01/24 19:22 Order name: CMP; Complete Time: 20:12 [facility] 01/24 19:22 Order name: Lipase; Complete Time: 20:12 [facility] 01/24 19:35 Order name: Urine Dipstick-Ancillary; Complete Time: 19:46 EDMD 01/24 22:26 Order name: Hemoglobin; Complete Time: 23:34 [facility] 01/24 19:22 Order name: IV Saline Lock; Complete Time: 19:30 ld1 01/24 19:22 Order name: Labs collected and sent; Complete Time: 19:30 [facility] 01/24 19:22 Order name: Urine Dipstick-Ancillary (obtain specimen); Complete Time: 19:30 [facility] 01/24 19:56 Order name: CT Abd/Pelvis - IV Contrast Only; Complete Time: 20:47 [facility] 01/25 00:02 Order name: COVID-19/FLU A+B/RSV (Document "Date of Onset" if Symptomatic) cs9 Administered Medications: 00:16 Drug: ProTONIX (pantoprazole) 40 mg Route: IVP; Site: left antecubital; tw5 Disposition: 06:06 Co-signature as Attending Physician, Hugo Niño MD. [facility] Disposition Summary: 01/25/22 00:05 Transfer Ordered Transfer Location: Other Acute Care Facility jr8 Reason: Higher level of care jr8 Condition: Stable jr8 Problem: new jr8 Symptoms: are unchanged jr8 Accepting Physician: Dr. Reyes (01/25/22 02:00) tw5 Diagnosis - GI Bleed/ Gastrointestinal hemorrhage, unspecified - Lower GI jr8 Forms: - Medication Reconciliation Form jr8 - SBAR form jr8 Signatures: Dispatcher [employer] EDMD Carlos Langston PA PA jr8 Hugo Niño MD MD [facility] Sary Tang RN RN 1 Maddi De Los Santos tw5 Skyler Bello RN RN ll3 Corrections: (The following items were deleted from the chart) 02:00 00:05 Dr. Reyes jr8 tw5
[2022-01-25] MEDS ORDERED: PANTOPRAZOLE 40 MG INJ ONE (00:08)
[2022-01-25 01:24] LABS: SARS-COV-2 RT PCR NEGATIVE (NEGATIVE)
[2022-01-25 03:41] VITALS: TEMP 98.2
[2022-01-25 03:47] VITALS: O2SAT 99
[2022-01-25 03:51] VITALS: BP 139/78
== END 2022-01-25 02:00 ==
LOC: ER 18:54
DX: K92.2 Gastrointestinal hemorrhage, unspecified (principal); Z20.822 Contact with and (suspected) exposure to COVID-19; I10 Essential (primary) hypertension
CPT/HCPCS: 85025; 36415; 85018; 81003; 83690; 80053; 0241U; 74177; 96374; 99285; Q9967; C9113

== ENCOUNTER 2022-11-26 15:10 | Emergency (ER) | payer SELFPAY ==
--- OUTSIDE RECORDS SUMMARY | 2022-11-26 15:14 | XMS REPORT | Continuity of Care Document ---
:1985 [facility] t Address [address] [place] [address] Care Team Providers Name Role Phone EH CASTANEDA III Primary Care Physician Unavailable APOLLO BLACKWOOD Attending Clinician Unavailable Ellis Reyes MD Attending Clinician Apollo Blackwood MD Attending Clinician Iqra Sotelo MD Attending Clinician [phone] Vidal Quiles MD Attending Clinician ELLIS REYES Attending Clinician Unavailable KRISTEN ALMONTE Attending Clinician Unavailable Jo Garcia RN Attending Clinician Unavailable SUSSY JAMISON Attending Clinician Unavailable Only, Ang Db Test Attending Clinician Unavailable Sussy Rosas Attending Clinician JESUS JOHNSON Attending Clinician Unavailable ELILS REYES Admitting Clinician Unavailable Payers Payer Name Policy Type Policy Number Effective Date Expiration Date S olya BCBS PPO POS EPO [id number] 2021 00:00:00 CHOICE [employer] [place] [id number] 2021 00:00:00 Problems Condition Condition Condition Status Onset Resolution Last Treating Co mments Source Name Details Category Date Date Treatment Clinician Date Lower GI Lower GI Disease Active 2022-0 [facility] Hematochez Hematochez Disease Active Overview [facility] 00[facility] g of this Medical 00 note Center might be different from the original. Added automatic ally from request for surgery [id number] Rectal Rectal Disease Active Univers bleeding bleeding 06-24 ity of 00:00: [place] [facility] Unspecifie Unspecifie Disease Active U nivers d d 06-24 [place] essential essential [place] hypert[place] hypertens[place] 00 Me dical on on Branch Allergies, Adverse Reactions, Alerts Allergy Allergy Status Severity Reaction(s) Onset Inactive Treating Comm ents Source Name Type Date Date Clinician NO KNOWN Drug Active Univers ALLERGIE Class ity of [facility] NO KNOWN Allergy Active [facility] Family History Family Member Diagnosis Comments Start Date Stop Date Source Natural mother GI problems [facility] Natural mother Stroke [facility] Social History Social Habit Start Date Stop Date Quantity Comments Source History SDOH [facility] Drinks History SDOH [facility] Alcohol Binge Medical [facility] [facility] History SDOH [facility] Alcohol Comment Medical C enter History SDOH [facility] Transport Non-Med Medical Center Exposure to Yes University of SARS-CoV-2 [facility] (event) Branch History [facility] 2022-01-25 2022-01-[address] [facility] Transport Med 00:00:00 00:00:[address] History [facility] 2022-01-25 2022-01-[address] [facility] Housing Unable to 00:00:00 00:00:00 Medical Center Pay History [facility] 2022-01-25 2022-01-[address] [facility] Housing Places 00:00:00 00:00:00 Medical Ce nter Lived History [facility] 2022-01-25 2022-01-[address] [facility] Housing Homeless 00:00:00 00:00:00 Medical Center Last Year Tobacco use and 2022-01-25 2022-01-[address] [facility] k[facility] exposure 00:00:00 00:00:00 Medical Center Alcohol intake 2022-01-25 2022-01-25 Ex-drinker [facility] 00:00:00 00:00:00 (finding) Medical Center History SDOH 2022-01-25 2022-01-25 1 LUCIANO Solorio Alcohol Frequency 00:00:00 00:00:00 Medical Center Sex Ass[birth year] At [birth year] LUCIANO Boyer 00:00:00 00:00:00 Medical Center Smoking Status Start Date Stop Date Source Never smoker [facility] Current every day smoker 2018-06-24 00:00:00 Uni versity [facility] Medications Ordered Filled Start Stop Current Ordering Indication Dosage Frequency Signature Comments Components Source Medication Medication Date Date Medication? Clinician (SIG) Name Name aspirin-mike Yes 1{tbl} Take [address] taminophen- 4-29 tablet by Wilmer es caffeine 15:35: mouth Medical (EXCEDRIN 10 every 6 Center MIGRAINE) (six) 250-250-65 hours as mg per needed for tablet Pain. lisinopriL Yes 20mg QD Take [address] (PRINIVIL,Z 3-26 by mouth Luke s ESTRIL) 20 00:00: daily. Medic al MG tablet 00 Center LISINOPRIL Yes [id number] TAKE 1 U nivers 20 mg 1-30 TABLET BY ity of tablet 00:00: MOUTH [facility] LISINOPRIL Yes [id number] TAKE 1 U nivers 20 mg 1-30 TABLET BY ity of tablet 00:00: [facility] EVERY Medical [place] Vital Signs Vital Name Observation Time Observation Value Comments Source HEIGHT 2022-01-25 03:30:00 167.6 cm WEIGHT 2022-01-25 03:30:00 108.069 kg HEIGHT 2022-01-25 03:30:00 167.6 cm WEIGHT 2022-01-25 03:30:00 108.069 kg HEIGHT 2022-01-25 03:30:00 167.6 cm WEIGHT 2022-01-25 03:30:00 108.069 kg Systolic blood 2022-01-25 12:15:00 135 mm[Hg] [facility] pressure [facility] Diastolic blood 2022-01-25 12:15:00 61 mm[Hg] [facility] S t [facility] Heart rate 2022-01-25 12:15:00 73 /min [facility] Respiratory rate 2022-01-25 12:15:00 13 /min [facility] Oxygen saturation in 2022-01-25 12:15:00 95 /min [facility] Arterial blood by Medical Ce nter Pulse oximetry Body temperature 2022-01-25 11:45:00 36.33 Johanna [facility] Body height 2022-01-25 03:30:00 167.6 cm [facility] Body weight 2022-01-25 03:30:00 108.069 kg [facility] BMI 2022-01-25 03:30:00 38.45 kg/m2 [facility] Procedures Procedure Date / Time Performed Performing Clinician [facility] e REPORT OF PROCEDURE - 2022-01-25 11:42:38 AshleighIqra hernandez [facility] ENDOSCOPY URL [facility] SIGMOIDOSCOPY 2022-01-25 11:30:00 AshleighAnderIqra [facility] US ABDOMEN LIMITED 2022-01-25 09:50:00 Ellis Reyes [facility] ABORH, MANUAL 2022-01-25 07:35:00 Gilma Paige [facility] BASIC METABOLIC PANEL 2022-01-25 04:21:00 [facility] 2022-01-25 04:21:00 Ellis Reyes [facility] MAGNESIUM 2022-01-25 04:21:00 Ellis Reyes [facility] PHOSPHORUS 2022-01-25 04:21:00 Ellis Reyes [facility] PROTHROMBIN TIME/INR 2022-01-25 04:21:00 Ellis Reyes [facility] CBC W/PLT COUNT & AUTO 2022-01-25 04:21:00 Ellis Reyes [facility] LIPID PANEL 2022-01-25 04:21:00 Ellis Reyes [facility] HEMOGLOBIN A1C 2022-01-25 04:21:00 Ellis Reyes [facility] HEPATITIS C ANTIBODY 2022-01-25 04:21:00 AmyEllis martell [facility] TYPE AND SCREEN, 2022-01-25 04:21:00 Ellis Reyes [facility] CBC W/PLT COUNT & AUTO 2022-01-25 04:21:00 AmyEllis martell [facility] Plan of Care Planned Activity Planned Date Details Comments Source Future Scheduled 2025-01-25 Lipid panel [facility] s Test 00:00:00 (procedure) [code = [facility] [id number]] Future Scheduled 2023-01-[address] [facility] Test 00:00:00 [facility] r Screening (12+) [code = Tobacco Cessation Counseling and Screening (12+)] Future Scheduled 2022-09-29 DEPRESSION SCREENING [facility] Test 00:00:00 (12+) [code = [facility] DEPRESSION SCREENING (12+)] Future Scheduled 2022-05-[address] [facility] Test 00:00:00 (#1) [code = [facility] INFLUENZA VACCINE (#1)] Future Scheduled 2021-07-12 COVID-19 VACCINE (3 - [facility] Test 00:00:00 Booster for Pfizer Medical C enter series) [code = COVID-19 VACCINE (3 - Booster for Pfizer series)] Future Scheduled 2006 DTAP/TDAP/TD VACCINES [facility] Test 00:00:00 (1 - Tdap) [code = Medical C enter DTAP/TDAP/TD VACCINES (1 - Tdap)] Encounters Start End Encounter Admission Attending Care Care Encounter Source Date/Time Date/Time Type Type Clinicians Facility Department ID 2022-01-25 2022-01-25 Inpatient ER BILLY BLACKWOOD Internal [id number] BILLY 03:13:00 15:34:00 APOLLO Maradiaga 2022-01-25 [facility] [id number] [facility] 03:13:00 15:34:00 Encounter Apollo Blackwood [facility] 2022-01-25 2022-01-25 Surgery Ashleigh, [facility] [id number] 11:30:00 11:50:00 Iqra [facility] 2022-01-25 2022-01-25 Anesthesia Vidal Quiles [facility] [id number] [facility] 11:30:00 11:46:00 Event Andres [facility] 2022-01-25 2022-01-25 Travel [facility] [id number] [facility] 00:[facility]00 00:00:00 [facility] 2021-11-15 2021-11-15 Outpatient R SUZY [facility] [id number] Univers 10:30:00 10:30:00 KRISTEN [facility] 2021-06-21 2021-06-21 Telephone TY Garcia [id number] Univers 00:00:00 00:00:00 Jo LACON [id number] it [facility] [id number] Adarsh as [id number] [address] 2021-06-20 2021-06-20 [facility] [id number] Univers 18:45:00 18:45:00 SUSSY brianna isabela f [facility] 2021-06-20 2021-06-20 Laboratory Only, Ang Db Test [facility] 1.2.8 [id number] [id number] Univers 18:18:18 18:33:18 Only [facility] [id number] [facility] [id number] Adarsh as Gabino?Blea [id number] [address] Medical Office Building 2021-05-03 2021-05-03 Outpatient R ALEX [facility] [id number] Univers 11:30:00 11:30:00 JESUS [facility] 2021-01-03 2021-01-03 Outpatient R [facility] [id number] Univers 11:45:00 11:45:00 [facility] Results Test Description Test Time Test Comments Results Result Sourc e Comments U/S, ABDOMINAL, 2022-01-25 Abdomen limited LIMITED 11:40:00 area? Add comment if clarification is [facility] MARGARITO MEDINA exam:->elevated : 1985 Sex: LFTs M *FINAL REPORT TECHNIQUE: Grayscale ultrasound of the right abdomen. INDICATION: elevated LFTs. COMPARISON: None. FINDINGS: MIDLINE VASCULATURE: The visualized inferior vena cava and aorta are unremarkable. LIVER: Increased hepatic echogenicity. Smooth liver contour. No focal lesions. The main portal vein is patent and measures 1.2 cm in diameter. BILIARY:Gallbladder: No gallstones or sludge. No gallbladder wall thickening, pericholecystic fluid, or distention. Negative sonographic Castro sign.Common bile duct measures 0.4 cm, within normal limits. No intrahepatic biliary ductal dilatation. PANCREAS: Incompletely visualized due to overlying bowel gas. PERITONEUM: No free fluid. RIGHT KIDNEY: Normal in size. No hydronephrosis. No sonographically evident solid mass lesion. IMPRESSION:Increased hepatic echogenicity, hepatic steatosis.. Signed: Tricia Tran MDReport Verified Date/Time: 01/25/2022 11:40:33 Reading Location: [facility] Radiology Reading Room TITIS C ANTIBODY 2022-01-25 10:50:41 Test Item Value Reference Range Interpretation Comme nts HEPATITIS C ANTIBODY (BEAKER) (test code = 367) Nonreactive Nonrea ctive Lawn Technician ID - DBPROTHROMBIN [id number] 05:01:42 Test Item Value Reference Range Interpretation Comments PROTIME (BEAKER) 11.0 seconds 9.3-12.0 Final Infor mation (test code = 759) (Auto Outp ut) INR (BEAKER) (test 1.00 See_Comment Final Inf ormation code = 370) (Auto Output) [Automated mess age] The system [employer] generated this result transmitted ref erence range: <=5.90. The reference range was not used to int erpret this result as normal/abnormal . RECOMMENDED COUMADIN/WARFARIN INR THERAPY RANGESSTANDARD DOSE: 2.0 - 3.0 Includes: PROPHYLAXIS for venous thrombosis, systemic embolization; TREATMENT for venous thrombosis and/or pulmonary embolus.HIGH RISK: Target INR is 2.5-3.5 for patients with mechanical heart valves.LIPID [id number] 05:01:20 Test Item Value Reference Range Interpretation Comments TRIGLYCERIDES (BEAKER) (test code = 225 mg/dL 540) CHOLESTEROL (BEAKER) (test code = 221 mg/dL 631) HDL CHOLESTEROL (BEAKER) (test code 37 mg/dL = 976) LDL CHOLESTEROL CALCULATED (BEAKER) 139 mg/dL (test code = 633) Triglyceride Reference Range: Low Risk <150 Borderline 150-199 High Risk 200- 499 Very High Risk >=500Cholesterol Reference Range: Low Risk <200 Borderline 200-239 High Risk >240HDL Cholesterol Reference Range: Low Risk >=60 High Risk <40LDL Cholesterol Reference Range: Optimal <100 Near Optimal 100-129 Borderline 130-159 High 160-189 Very High >=190 Lawn Technician ID - LITOOperatorID - LITOOperator ID - [id number] 04:58:18 Test Item Value Reference Range Interpretation Comments MAGNESIUM (BEAKER) (test code = 1.9 mg/dL 1.5-3.0 627) Lawn Technician ID - LITOOperator ID - LITOOperator ID - LITOOperator ID - LITOHEPATIC FUNCTION [id number] 04:58:00 Test Item Value Reference Range Interpretation Comments TOTAL PROTEIN (BEAKER) (test code = 7.2 gm/dL 6.0-8.5 770) ALBUMIN (BEAKER) (test code = 1145) 4.2 g/dL 3.5-5.0 BILIRUBIN TOTAL (BEAKER) (test code 0.6 mg/dL 0.1-1.2 = 377) BILIRUBIN DIRECT (BEAKER) (test 0.2 mg/dL 0.0-0.4 code = 706) ALKALINE PHOSPHATASE (BEAKER) (test 71 U/L 30-115 code = 346) AST (SGOT) (BEAKER) (test code = 27 U/L 5-40 353) ALT (SGPT) (BEAKER) (test code = 69 U/L 5-50 H 347) Lawn Technician ID - LITOOperator ID - LITOOperator ID - LITOOperator ID - LITOOperator ID - LITOOperator ID - LITOOperator ID - LITOBASIC METABOLIC [id number] 04:56:19 Test Item Value Reference Range Interpretation Comments SODIUM (BEAKER) 139 meq/L 135-148 (test code = 381) POTASSIUM (BEAKER) 4.0 meq/L 3.6-5.5 (test code = 379) CHLORIDE (BEAKER) 102 meq/L 98-106 (test code = 382) CO2 (BEAKER) (test 26 meq/L 20-29 code = 355) BLOOD UREA NITROGEN 13 mg/dL 10-26 (BEAKER) (test code = 354) CREATININE (BEAKER) 0.85 mg/dL 0.50-1.20 (test code = 358) GLUCOSE RANDOM 97 mg/dL 70-110 (BEAKER) (test code = 652) CALCIUM (BEAKER) 9.3 mg/dL 8.5-10.5 (test code = 697) EGFR (BEAKER) (test 103 mL/min/1.73 ESTIM ATED GFR IS code = 1092) sq m NOT ACCURATE CREATININE CLEARANCE IN PREDICTING GLOMERULAR FILTRATION RATE . ESTIMATED GFR I S NOT APPLICABLE FOR DIALYSIS PATIEN TS. Lawn Technician ID - LITOOperator ID - LITOOperator ID - LITOOperator ID - LITOOperator ID - LITOOperator ID - LITOOperator ID - LITOOperator ID - LITOOperator ID - [id number] 04:54:42 Test Item Value Reference Range Interpretation Comments PHOSPHORUS (BEAKER) (test code = 4.2 mg/dL 2.5-4.5 604) Lawn Technician ID - LITOHEMOGLOBIN [id number] 04:45:57 Test Item Value Reference Range Interpretation Comments HEMOGLOBIN A1C (BEAKER) (test code = 5.4 % 4.3-6.1 368) Lawn Technician ID - LITOCBC W/PLT COUNT & AUTO [id number] 04:33:32 Test Item Value Reference Range Interpretation Comments WHITE BLOOD CELL COUNT (BEAKER) 8.2 K/ L 4.0-10.0 (test code = 775) RED BLOOD CELL COUNT (BEAKER) 4.90 M/ L 4.20-5.80 (test code = 761) HEMOGLOBIN (BEAKER) (test code = 14.7 GM/DL 13.0-16.8 410) HEMATOCRIT (BEAKER) (test code = 41.8 % 36.0-50.0 411) MEAN CORPUSCULAR VOLUME (BEAKER) 85.3 fL 82.0-99.0 (test code = 753) MEAN CORPUSCULAR HEMOGLOBIN 30.0 pg 27.0-33.0 (BEAKER) (test code = 751) MEAN CORPUSCULAR HEMOGLOBIN CONC 35.2 GM/DL 32.0-36.0 (BEAKER) (test code = 752) RED CELL DISTRIBUTION WIDTH 12.1 % 12.0-15.0 (BEAKER) (test code = 412) PLATELET COUNT (BEAKER) (test 297 K/CU MM 150-430 code = 756) MEAN PLATELET VOLUME (BEAKER) 9.2 fL 6.0-11.5 (test code = 754) NUCLEATED RED BLOOD CELLS 0 /100 WBC 0-0 (BEAKER) (test code = 413) NEUTROPHILS RELATIVE PERCENT 55 % (BEAKER) (test code = 429) LYMPHOCYTES RELATIVE PERCENT 33 % (BEAKER) (test code = 430) MONOCYTES RELATIVE PERCENT 10 % (BEAKER) (test code = 431) EOSINOPHILS RELATIVE PERCENT 2 % (BEAKER) (test code = 432) BASOPHILS RELATIVE PERCENT 1 % (BEAKER) (test code = 437) NEUTROPHILS ABSOLUTE COUNT 4.49 K/ L 1.80-8.00 (BEAKER) (test code = 670) LYMPHOCYTES ABSOLUTE COUNT 2.65 K/ L 1.48-4.50 (BEAKER) (test code = 414) MONOCYTES ABSOLUTE COUNT (BEAKER) 0.78 K/ L 0.00-1.30 (test code = 415) EOSINOPHILS ABSOLUTE COUNT 0.17 K/ L 0.00-0.50 (BEAKER) (test code = 416) BASOPHILS ABSOLUTE COUNT (BEAKER) 0.05 K/ L 0.00-0.20 (test code = 417) IMMATURE GRANULOCYTES-RELATIVE 0 % 0-0 PERCENT (BEAKER) (test code = 2801)
[2022-11-26 15:56] LABS: Hematocrit 42.4 % (39.6-49.0); Lymphocytes % 12.6 % (15.3-44.8); MPV 7.2 fL (7.6-11.3); RBC Red Blood Cell Count 4.82 M/uL (4.33-5.43)
--- NOTE | 2022-11-26 15:58 | RAD REPORT ---
EXAM DESCRIPTION: RAD - Chest Single View - 11/26/2022 3:50 pm CLINICAL HISTORY: CHEST PAIN COMPARISON: Chest Single View dated 10/21/2021; Chest Single View dated 08/10/2020; Chest Single View dated 12/05/2016 FINDINGS: Lines: None. Lungs: No evidence of edema or pneumonia. Pleural: No significant pleural effusions or pneumothorax. Cardiac: The heart size is within normal limits. Mediastinum: Within normal limits. Bones: No acute fractures. Other: None IMPRESSION: No acute cardiopulmonary disease.
[2022-11-26 16:15] LABS: Magnesium 2.2 mg/dL (1.6-2.4); Potassium 3.9 mmol/L (3.5-5.1); Troponin High Sensitivity 3.2 pg/mL (<58.9)
[2022-11-26] MEDS ORDERED: ASPIRIN 81 MG CHEWABLE TABLET ONE (16:20)
--- NOTE | 2022-11-26 16:46 | ER ---
Nurse's Notes [facility] Name: Cesar Jackson Age: 37 yrs Sex: Male : 1985 Arrival Date: 11/26/2022 Time: 15:15 Bed 16 Private MD: Diagnosis: Chest pain, unspecified;Streptococcal pharyngitis Presentation: 11/26 15:24 Chief complaint: Patient states: he is having left sided chest pain, that goes into his ap3 neck and arm. patient states his left arm is tight and tingly. patient states this all started approx 3 days ago. Coronavirus screen: At this time, the client does not indicate any symptoms associated with coronavirus-19. Ebola Screen: No symptoms or risks identified at this time. Initial Sepsis Screen: Does the patient meet any 2 criteria? No. Patient's initial sepsis screen is negative. Does the patient have a suspected source of infection? No. Patient's initial sepsis screen is negative. Risk Assessment: Do you want to hurt yourself or someone else? Patient reports no desire to harm self or others. Onset of symptoms was November 23, 2022. 15:24 Method Of Arrival: Ambulatory ap3 15:26 Acuity: EDUARDO 3 ap3 Triage Assessment: 15:25 General: Appears uncomfortable, Behavior is calm, cooperative, appropriate for age. ap3 Pain: Complains of pain in chest, left arm and neck Pain currently is 3 out of 10 on a pain scale. Quality of pain is described as crampy, pressure, Pain began gradually, 2-3 days ago. Neuro: Level of Consciousness is awake, alert, obeys commands, Oriented to person, place, time, situation. Cardiovascular: Reports chest pain, Patient's skin is warm and dry. Respiratory: Airway is patent Respiratory effort is even, unlabored, Respiratory pattern is regular, symmetrical. Historical: - Allergies: 15:25 No Known Allergies; ap3 - PMHx: 15:25 Hypertension; ap3 - PSHx: 15:25 Left elbow surgery- 2014; ap3 - Immunization history:: Client reports receiving the 2nd dose of the Covid vaccine, Flu vaccine is not up to date. - Social history:: Smoking status: Patient/guardian denies using tobacco, Stopped _ months ago 6. Screenin:27 [facility] ED Fall Risk Assessment (Adult) History of falling in the last 3 months, ap3 including since admission No falls in past 3 months (0 pts). Abuse screen: Denies threats or abuse. Nutritional screening: No deficits noted. Tuberculosis screening: No symptoms or risk factors identified. Assessment: 15:27 Pain: Pain radiates to left arm. ap3 16:15 Reassessment: Patient appears in no apparent distress at this time. Patient and/or db family updated on plan of care and expected duration. Pain level reassessed. Patient is alert, oriented x 3, equal unlabored respirations, skin warm/dry/pink. patient is tearful. patient states is sad and upset because he just lost his daughter on Friday, 2 days ago. General: Appears in no apparent distress. Behavior is cooperative, crying. Pain: Denies pain. Neuro: Level of Consciousness is awake, alert, obeys commands, Oriented to person, place, time, situation. 17:17 Reassessment: Patient appears in no apparent distress at this time. Patient and/or db family updated on plan of care and expected duration. Pain level reassessed. Patient is alert, oriented x 3, equal unlabored respirations, skin warm/dry/pink. Patient states feeling better. Patient states symptoms have improved. Vital Signs: 15:26 BP 127 / 96; Pulse 112; Resp 19; Temp 98.7; Pulse Ox 96% ; Weight 108.86 kg; ap3 15:34 BP 133 / 79; Pulse 125; Resp 18; Pulse Ox 97% on R/A; db 16:30 BP 113 / 72; Pulse 116; Resp 18; Pulse Ox 96% on R/A; db ED Course: 15:15 Patient arrived in ED. mr 15:17 Mat Tomas DO is Attending Physician. ms3 15:27 Triage completed. ap3 15:27 Arm band placed on right wrist. ap3 15:27 Patient maintains SpO2 saturation greater than 95% on room air. ap3 15:35 Praveena Youngblood, ORTIZ is Primary Nurse. db 15:52 XRAY Chest (1 view) In Process Unspecified. EDMS 16:45 James Wolf MD is Referral Physician. ms3 17:16 Patient has correct armband on for positive identification. Bed in low position. Call db light in reach. Side rails up X 1. Client placed on continuous cardiac and pulse oximetry monitoring. NIBP monitoring applied. 17:16 No provider procedures requiring assistance completed. IV discontinued, intact, db bleeding controlled, No redness/swelling at site. Administered Medications: 16:23 Drug: Aspirin Chewable Tablet 324 mg Route: PO; db 17:17 Follow up: Response: No adverse reaction db Medication: 17:16 VIS not applicable for this client. db Outcome: 16:45 Discharge ordered by . ms3 17:16 Discharged to home ambulatory, with family. db 17:16 Condition: stable 17:16 Condition: stable 17:16 Discharge instructions given to patient, family, Instructed on discharge instructions, follow up and referral plans. Prescriptions given X 1. 17:43 Patient left the ED. ss Signatures: Dispatcher [employer] JASMINELA DillXenia omalley Shelby, RN RN Kaia Barger RN RN ap3 Mat Tomas, DO ms3 Praveena Youngblood RN RN db
--- NOTE | 2022-11-26 16:46 | EDPHYS ---
Physician Documentation [facility] Name: Cesar Jackson Age: 37 yrs Sex: Male : 1985 Arrival Date: 11/26/2022 Time: 15:15 Bed 16 Private MD: ED Physician Mat Tomas HPI: 11/26 15:28 This 37 yrs old Male presents to ER via Ambulatory with complaints of Chest ms3 Pain, Head pain, Neck pain. 15:28 37-year-old male with past medical history of hypertension presents for left arm, ms3 left-sided neck, left sided chest pain that he rates a 8/10. Patient states the pain is a cramping sensation that began 3 days prior to arrival. Patient denies nausea, vomiting.. Historical: - Allergies: 15:25 No Known Allergies; ap3 - PMHx: 15:25 Hypertension; ap3 - PSHx: 15:25 Left elbow surgery- 2014; ap3 - Immunization history:: Client reports receiving the 2nd dose of the Covid vaccine, Flu vaccine is not up to date. - Social history:: Smoking status: Patient/guardian denies using tobacco, Stopped _ months ago 6. ROS: 15:43 Constitutional: Negative for fever, and chills. ms3 15:43 Respiratory: Negative for shortness of breath, cough, wheezing, and pleuritic chest pain, Abdomen/GI: Negative for abdominal pain, nausea, vomiting, diarrhea, and constipation, MS/Extremity: Negative for injury and deformity, Skin: Negative for injury, rash, and discoloration. 15:43 ENT: Positive for sore throat. 15:43 Neck: Positive for pain with movement, pain at rest. 15:43 Cardiovascular: Positive for chest pain. 15:43 All other systems are negative. Exam: 15:43 Constitutional: This is a well developed, well nourished patient who is awake, alert, ms3 and in no acute distress. Head/Face: Normocephalic, atraumatic. Neck: Trachea midline, no cervical lymphadenopathy. Supple, full range of motion without nuchal rigidity, or vertebral point tenderness. No Meningismus. Chest/axilla: Normal chest wall appearance and motion. Nontender with no deformity. Cardiovascular: Regular rate and rhythm with a normal S1 and S2. No gallops, murmurs, or rubs. Normal PMI, no JVD. No pulse deficits. Respiratory: Lungs have equal breath sounds bilaterally, clear to auscultation and percussion. No rales, rhonchi or wheezes noted. No increased work of breathing, no retractions or nasal flaring. Abdomen/GI: Soft, non-tender, with normal bowel sounds. No distension or tympany. No guarding or rebound. No evidence of tenderness throughout. Skin: Warm, dry with normal turgor. Normal color with no rashes, no lesions, and no evidence of cellulitis. MS/ Extremity: Pulses equal, no cyanosis. Neurovascular intact. Full, normal range of motion. 15:43 ECG was reviewed by the Attending Physician. Vital Signs: 15:26 BP 127 / 96; Pulse 112; Resp 19; Temp 98.7; Pulse Ox 96% ; Weight 108.86 kg; ap3 15:34 BP 133 / 79; Pulse 125; Resp 18; Pulse Ox 97% on R/A; db 16:30 BP 113 / 72; Pulse 116; Resp 18; Pulse Ox 96% on R/A; db MDM: 15:43 Patient medically screened. ms3 15:43 Differential diagnosis: abnormal EKG, acute myocardial infarction, coronary artery ms3 disease pulmonary embolus. 16:49 HEART Score: History: Slightly Suspicious (0), ECG: Normal (0), Age: < or = 45 years ms3 (0), Risk Factors: 1 or 2 risk factors (1), Troponin: < or = 1 x Normal Limit (0), Total Score = 1. Data reviewed: vital signs, nurses notes, lab test result(s), EKG, radiologic studies, and as a result, I will discharge patient. I considered the following discharge prescriptions or medication management in the emergency department Medications were administered in the Emergency Department. See MAR. Independent interpretation of the following test(s) in the Emergency Department EKG: See my EKG interpretation above surveillance system monitor: rate is 108 beats/min, Rhythm is sinus tachycardia, with no ectopy, Interpretation: tachycardia. Counseling: I had a detailed discussion with the patient and/or guardian regarding: the historical points, exam findings, and any diagnostic results supporting the discharge/admit diagnosis, lab results, radiology results, the need for outpatient follow up, to return to the emergency department if symptoms worsen or persist or if there are any questions or concerns that arise at home. ED course: Discussed labs, chest x-ray, EKG with patient. Patient to follow-up with Dr. Wolf in 2 to 3 days. All questions were answered. On reevaluation patient's heart rate improved, patient alert and oriented x4, no apparent distress, nontoxic, speaking full sentences. 11/26 15:28 Order name: Basic Metabolic Panel; Complete Time: 16:33 ms3 11/26 15:28 Order name: CBC with Diff; Complete Time: 16:33 ms3 11/26 15:28 Order name: Magnesium; Complete Time: 16:33 ms3 11/26 15:28 Order name: Troponin HS; Complete Time: 16:33 ms3 11/26 15:28 Order name: XRAY Chest (1 view); Complete Time: 16:33 ms11/26 15:28 Order name: Cardiac monitoring; Complete Time: 16:13 ms3 11/26 15:28 Order name: EKG - Nurse/Tech; Complete Time: 16:13 ms3 11/26 15:28 Order name: IV Saline Lock; Complete Time: 16:13 ms3 11/26 15:28 Order name: Labs collected and sent; Complete Time: 16:13 ms3 11/26 15:28 Order name: O2 Per Protocol; Complete Time: 16:13 ms11/26 15:28 Order name: O2 Sat Monitoring; Complete Time: 16:13 11/26 15:28 Order name: Rapid Strep ms3 11/26 15:46 Order name: D-Dimer ms3 EC:43 Rate is 120 beats/min. Rhythm is regular. QRS [place] is Normal. [place] interval is normal. ms3 Clinical impression: NSR w/ Non-specific ST/T Changes. Interpreted by me. Reviewed by me. Administered Medications: 16:23 Drug: Aspirin Chewable Tablet 324 mg Route: PO; db 17:17 Follow up: Response: No adverse reaction db Disposition Summary: 11/26/22 16:45 Discharge Ordered Location: Home ms3 Condition: Stable ms3 Diagnosis - Chest pain, unspecified ms3 - Streptococcal pharyngitis ms3 Followup: ms3 - With: James Wolf MD - When: 2 - 3 days - Reason: Recheck today's complaints Discharge Instructions: - Discharge Summary Sheet ms3 - Nonspecific Chest Pain, Adult ms3 - Strep Throat, Adult ms3 Forms: - Medication Reconciliation Form ms3 - Thank You Letter ms3 - Antibiotic Education ms3 - Prescription Opioid Use ms3 Prescriptions: - Amoxicillin 500 mg Oral Capsule - take 1 capsule by ORAL route 2 times per day for 10 days; 20 tablet; Refills: ms3 0, Product Selection Permitted Signatures: Dispatcher [employer] Kaia Cedeño RN RN ap3 Mat Tomas, DO ms3 Praveena Youngblood, RN RN db
[2022-11-26 18:03] VITALS: TEMP 98.7
[2022-11-26 18:06] VITALS: BP 113/72; O2SAT 96
--- NOTE | 2022-11-27 17:30 | EKG ---
Test Date: 2022-11-26 Test Time: 15:38:09 Oval Or Circular Glass Cutter: HELEN MEASUREMENT RESULTS: Intervals: Rate: 120 TN: 140 QRSD: 82 QT: 308 QTc: 435 [place]: P: 42 TN: 140 QRS: 27 T: 35 INTERPRETIVE STATEMENTS: Sinus tachycardia Cannot rule out Anterior infarct, age undetermined Abnormal ECG Compared to ECG 10/22/2021 00:16:45 Myocardial infarct finding now present Sinus rhythm no longer present Sinus arrhythmia no longer present Electronically Signed On 11-27-22 17:29:03 STORE FACILITY TECHNICIAN by Devyn Rollins
== END 2022-11-26 17:43 | disposition home or self-care (01) ==
LOC: ER 15:10
DX: R07.89 Other chest pain (principal); J02.0 Streptococcal pharyngitis; I10 Essential (primary) hypertension
CPT/HCPCS: 36415; 71045; 80048; 83735; 84484; 85025; 85379; 87081; 93005

== ENCOUNTER 2023-06-13 01:37 | Emergency (ER) | payer OTHER, SELFPAY ==
--- OUTSIDE RECORDS SUMMARY | 2023-06-13 01:41 | XMS REPORT | Continuity of Care Document ---
:1985 Author Organization [facility] t Address [address] [facility] [address] [place] [address] Care Team Providers Name Role Phone EH CASTANEDA III Primary Care Physician Unavailable FAM WALTON Attending Clinician Unavailable BRYNN STEPHENSON Attending Clinician Unavailable CRISTI HE Attending Clinician Unavailable INA LEWIS Attending Clinician Unavailable SHIRIN ARANA Attending Clinician Unavailable MANINDER ROSA Attending Clinician Unavailable MARY GRACE ROSA Attending Clinician Unavailable [id number] Attending Clinician Unavailable ROBB PIERRE Attending Clinician Unavailable TRED45 Attending Clinician Unavailable LAB90 Attending Clinician Unavailable Ellis Reyes MD Attending Clinician Apollo Blackwood MD Attending Clinician APOLLO BLACKWOOD Attending Clinician Unavailable Iqra Sotelo MD Attending Clinician [phone] Vidal Garcia MD Attending Clinician KRISTEN ALMONTE Attending Clinician Unavailable Jo Garcia RN Attending Clinician Unavailable SUSSY JAMISON Attending Clinician Unavailable Only, Gui Db Test Attending Clinician Unavailable Sussy Rosas Attending Clinician JESUS JOHNSON Attending Clinician Unavailable ELLIS REYES Admitting Clinician Unavailable Payers Payer Name Policy Type Policy Number Effective Date Expiration Date [facility] 2 [id number] 2022 00:00:00 INC/PPO BCBS [facility] [id number] 2021 00:00:00 Problems Condition Condition Condition Status Onset Resolution Last Treating Co mments Source Name Details Category Date Date Treatment Clinician Date Primary Primary Disease Active Usha hypertensi hypertensi [address] Se ybold on on 00:00: - 00 Externa l Lower GI Lower GI Disease [facility] Hematochez Hematochez Disease Active Overview [facility] 00:[facility]: g of this Medical note Center might be different from the original. Added automatic ally from request for surgery [id number] Rectal Rectal Disease Active Univers bleeding bleeding 06-24 ity of 00:00: [place] [address] Medical Branch Unspecifie Unspecifie Disease Active U nivers d d 06-24 ity of essential essential 00[place] hypertens[place] hypertens[place] 00 Me dical on on Branch Allergies, Adverse Reactions, Alerts Allergy Allergy Status Severity Reaction(s) Onset Inactive Treating Comm ents Source Name Type Date Date Clinician NO KNOWN Drug Active Univers ALLERGIE Class ity of S [facility] NO KNOWN Allergy Active [facility] Family History Family Member Diagnosis Comments Start Date Stop Date Source Natural mother GI problems [facility] Natural mother Stroke [facility] Social History Social Habit Start Date Stop Date Quantity Comments Source Exposure to Yes University of SARS-CoV-2 (event) [facility] Branch History SDOH [facility] Alcohol Std Drinks Medica l Center History SDOH [facility] Alcohol Binge Medical [facility] History SDOH [facility] Transport Non-Med Medical Center Gender identity Usha Saldivar ybold - External Sexual orientation Usha Ojeda - External Tobacco Comment 2023-02-11 2023-02-11 Started smoking Leanna Ojeda - 00:00:00 00:00:00 18 yo. Has quit External 2011 for 2 years and restarted Quit 06/2022 Tobacco use and 2023-02-11 2023-02-11 Smokeless Usha Saldivar ybold - exposure 00:00:00 00:00:00 tobacco non-user External Alcohol Comment 2023-01-03 2023-01-03 tall boys beer Silvio bocanegra Seybold - 00:00:00 00:00:00 External History of Social 2023-01-03 2023-01-03 Usha Saldivarybold - function 00:00:00 00:00:00 External History of tobacco 2022-06-29 Cigarette Smoker Usha Seybold - use 00:00:00 External History [facility] 2022-01-25 2022-01-[address] [facility] Housing Unable to 00:00:00 00:00:00 Medical Center Pay History [facility] 2022-01-25 2022-01-[address] [facility] Housing Places 00:00:00 00:00:00 Medical Ce nter Lived History [facility] 2022-01-25 2022-01-[address] [facility] Housing Homeless 00:00:00 00:00:00 Medical Center Last Year Alcohol intake 2022-01-25 2022-01-25 Ex-drinker [facility] 00:[facility]00 00:00:00 (finding) Medical Center History [facility] 2022-01-25 2022-01-[address] [facility] Alcohol Frequency 00:00:00 00:00:00 Medical Center History [facility] 2022-01-25 2022-01-[address] [facility] Transport Med 00:00:00 00:00:[address] Sex Assigned At [address] [facility] 00:00:00 00:00:00 Medical Center Smoking Status Start Date Stop Date Source Ex-smoker 2023-02-11 00:00:00 2023-02-11 00:00:00 Usha schmidt - External Never [facility] Current every day 2018-06-24 00:00:00 [facility] smoker Medical Branch Medications Ordered Filled Start Stop Current Ordering Indication Dosage Frequency Signature Comments Components Source Medication Medication Date Date Medication? Clinician (SIG) Name Name Lisinopril Yes 20mg Take 1 Kelse y 20 MG oral 4-12 tablet (20 Sey bold Tablet 00:00: mg total) - 00 by mouth Externa daily l Rosuvastati Yes [id number] 10mg Take 1 Usha n Calcium 4-12 tablet (10 Seyb old 10 MG oral 00:00: mg total) - Tablet 00 by mouth Externa daily l Lisinopril Yes 20mg Take 1 Kelse y 20 MG oral 4-10 tablet (20 Sey bold Tablet 11:28: mg total) - 30 by mouth Externa daily l aspirin-mike Yes 1{tbl} Take [address] taminophen- 4-29 tablet by Wilmer es caffeine 15:35: mouth Medical (EXCEDRIN 10 every 6 Center MIGRAINE) (six) 250-250-65 hours as mg per needed for tablet Pain. aspirin-mike Yes 1{tbl} Take [address] taminophen- 4-29 tablet by Wilmer es caffeine 15:35: mouth Medical (EXCEDRIN 10 every 6 Center MIGRAINE) (six) 250-250-65 hours as mg per needed for tablet Pain. lisinopriL Yes 20mg QD Take [address] (PRINIVIL,Z 3-26 by mouth Luke s ESTRIL) 20 00:00: daily. Medic al MG tablet [place] lisinopriL Yes 20mg QD Take [address] (PRINIVIL,Z 3-26 by mouth Luke s ESTRIL) 20 00:00: daily. Medic al MG tablet 00 [place] LISINOPRIL Yes [id number] TAKE 1 U nivers 20 mg 1-30 TABLET BY ity of tablet 00:00: MOUTH [place] EVERY DAY Medical Branch LISINOPRIL Yes [id number] TAKE 1 U nivers 20 mg 1-30 TABLET BY ity of tablet 00:00: MOUTH [place] 00 EVERY DAY [facility] Branch Immunizations Ordered Immunization Filled Immunization Date Status Commen ts Source Name Name Covid-19 Vaccine 2021-02-09 Completed Usha schmidt (Didi-Dache), Mrna-lnp, 00:00:00 - Ext ernal Artur Protein, Pf, 30mcg/0.3ml,IM Covid-19 Vaccine 2021-02-09 Completed Usha schmidt (Didi-Dache), Mrna-lnp, 00:00:00 - Ext ernal Artur Protein, Pf, 30mcg/0.3ml,IM Covid-19 Vaccine 2021-01-19 Completed Usha schmidt (Didi-Dache), Mrna-lnp, 00:00:00 - Ext ernal Artur Protein, Pf, 30mcg/0.3ml,IM Covid-19 Vaccine 2021-01-19 Completed Usha davidbold (Didi-Dache), Mrna-lnp, 00:00:00 - Ext ernal Artur Protein, Pf, 30mcg/0.3ml,IM Vital Signs Vital Name Observation Time Observation Value Comments Source Systolic blood 2023-02-11 18:39:00 120 mm[Hg] Usha Seybold - pressure External Diastolic blood 2023-02-11 18:39:00 80 mm[Hg] Jassise y Seybold - pressure External Heart rate 2023-02-11 18:39:00 92 /min Usha Nelson eybold - External Body temperature 2023-02-11 18:39:00 37 Johanna Leanna david Seybold - External Respiratory rate 2023-02-11 18:39:00 18 /min Leanna david Seybold - External Body height 2023-02-11 18:39:00 165.1 cm Usha Nelson eybold - External Body weight 2023-02-11 18:39:00 112.946 kg Usha Nelson eybold - External BMI 2023-02-11 18:39:00 41.44 kg/m2 Usha Nelson eybold - External Systolic blood 2023-01-06 16:22:00 122 mm[Hg] Usha Saldivarybold - pressure External Diastolic blood 2023-01-06 16:22:00 84 mm[Hg] Silvio bocanegra Seybold - pressure External Heart rate 2023-01-06 16:22:00 82 /min Usha Nelson eybold - External Body temperature 2023-01-06 16:22:00 36.11 Johanna Leanna david Seybold - External Respiratory rate 2023-01-06 16:22:00 16 /min Leanna david Seybold - External Body height 2023-01-06 16:22:00 165.1 cm Usha Nelson eybold - External Body weight 2023-01-06 16:22:00 111.494 kg Usha Nelson eybold - External BMI 2023-01-06 16:22:00 40.90 kg/m2 Usha S eybold - External Oxygen saturation in 2023-01-06 16:22:00 97 /min Usha jen - Arterial blood by External Pulse oximetry HEIGHT 2022-01-25 03:30:00 167.6 cm WEIGHT 2022-01-25 03:30:00 108.069 kg HEIGHT 2022-01-25 03:30:00 167.6 cm WEIGHT 2022-01-25 03:30:00 108.069 kg Systolic blood 2022-01-25 12:15:00 135 mm[Hg] [facility] Diastolic blood 2022-01-25 12:15:00 61 mm[Hg] [facility] Heart rate 2022-01-25 12:15:00 73 /min [facility] Respiratory rate 2022-01-25 12:15:00 13 /min [facility] Oxygen saturation in 2022-01-25 12:15:00 95 /min [facility] Arterial blood by Medical Ce nter Pulse oximetry Body temperature 2022-01-25 11:45:00 36.33 Johanna [facility] Body height 2022-01-25 03:30:00 167.6 cm [facility] Body weight 2022-01-25 03:30:00 108.069 kg [facility] BMI 2022-01-25 03:30:00 38.45 kg/m2 [facility] Procedures Procedure Date / Time Performed Performing Clinician [facility] e REPORT OF PROCEDURE - 2022-01-25 11:42:38 AshleighIqra hernandez [facility] ENDOSCOPY URL [facility] SIGMOIDOSCOPY 2022-01-25 11:30:00 Ashleigh Iqra [facility] US ABDOMEN LIMITED 2022-01-25 09:50:00 Ellis Reyes [facility] ABORH, MANUAL 2022-01-25 07:35:00 Gilma Paige [facility] BASIC METABOLIC PANEL 2022-01-25 04:21:00 Ellis Reyes [facility] HEPATIC FUNCTION PANEL 2022-01-25 04:21:00 Ellis Reyes [facility] MAGNESIUM 2022-01-25 04:21:00 [facility] 2022-[facility]-25 04:21:00 [facility] PROTHROMBIN TIME/INR 2022-01-25 04:21:00 Ellis Reyes [facility] CBC W/PLT COUNT & AUTO 2022-01-25 04:21:00 [facility] LIPID PANEL 2022-01-25 04:21:00 [facility] HEMOGLOBIN A1C 2022-01-25 04:21:00 Amy [facility] HEPATITIS C ANTIBODY 2022-01-25 04:21:00 Ellis Reyes [facility] TYPE AND SCREEN, 2022-01-25 04:21:00 [facility] & AUTO 2022-01-25 04:21:00 [facility] Plan of Care Planned Activity Planned Date Details Comments Source Future Scheduled 2025-01-25 Lipid panel (procedure) [facility] Test 00:00:00 [code = 24391198] Medical Ce nter Future Scheduled 2025-01-25 Lipid panel (procedure) [facility] Test 00:00:00 [code = 72725081] Medical Ce nter Future Scheduled 2023-05-30 Influenza Vaccine (#1) [facility] 00:00:00 [code = Influenza Vaccine In dical Center (#1)] Future Scheduled 2023-01-[address] [facility] Test 00:00:00 Counseling and Screening Med ical Center (12+) [code = Tobacco Cessation Counseling and Screening (12+)] Future Scheduled 2023-01-[address] [facility] Test 00:00:00 Counseling and Screening Med ical Center (12+) [code = Tobacco Cessation Counseling and Screening (12+)] Future Scheduled 2022-09-[address] [facility] Test 00:00:00 (12+) [code = DEPRESSION Med ical Center SCREENING (12+)] Future Scheduled 2022-09-[address] [facility] Test 00:00:00 (12+) [code = DEPRESSION Med ical Center SCREENING (12+)] Future Scheduled 2022-05-30 INFLUENZA VACCINE (#1) [facility] 00:00:00 [code = INFLUENZA VACCINE Me dical Center (#1)] Future Scheduled 2021-07-12 COVID-19 VACCINE (3 [facility] 00:00:00 Booster for Pfizer Medical C enter series) [code = COVID-19 VACCINE (3 - Booster for Pfizer series)] Future Scheduled 2021-04-06 COVID-19 VACCINE (3 - [facility] Test 00:00:00 Booster for Pfizer Medical C enter series) [code = COVID-19 VACCINE (3 - Booster for Pfizer series)] Future Scheduled 2006 DTAP/TDAP/TD VACCINES ([address] [facility] Test 00:00:00 - Tdap) [code = Medical Cent er DTAP/TDAP/TD VACCINES (1 - Tdap)] Future Scheduled 2006 DTAP/TDAP/TD VACCINES ([address] [facility] Test 00:00:00 - Tdap) [code = Medical Cent er DTAP/TDAP/TD VACCINES (1 - Tdap)] Future Scheduled [address] [facility] Test 00:00:00 virus screening Medical Cent er (procedure) [code = 774021204] Encounters Start End Encounter Admission Attending Care Care Encounter Source Date/Time Date/Time Type Type Clinicians Facility Department ID 2023-07-01 2023-07-01 Outpatient FAM WALTON [id number] Usha 13:15:00 13:15:00 Seybol jayshree 2023-06-18 2023-06-18 Outpatient USHA STEPHENSON [id number] Usha 15:30:00 15:30:00 BRYNN Saldivarybol jayshree 2023-06-10 2023-06-10 Outpatient USHA STEPHENSON [id number] Usha 08:00:00 08:00:00 BRYNN Seybol jayshree 2023-05-16 2023-05-16 Outpatient USHA HE [id number] Usha 09:15:00 09:15:00 CRISTI Seybol d 2023-04-24 2023-04-24 Outpatient INA LEWIS USHA VITALE [id number] Usha 08:00:00 08:00:00 Seybol d 2023-04-21 2023-04-21 Outpatient USHA HE [id number] Usha 00:00:00 00:00:00 CRISTI Seybol d 2023-03-03 2023-03-03 Outpatient USHA ARANA [id number] Usha 16:00:00 16:00:00 SHIRIN Seybol d 2023-02-28 2023-02-28 Outpatient USHA ROSA [id number] Usha 00:00:00 00:00:00 MANINDER Seybol d 2023-02-19 2023-02-19 Outpatient USHA ROSA [id number] Usha 00:00:00 00:00:00 MANINDER Seybol d 2023-02-11 2023-02-11 Outpatient USHA ROSA [id number] Usha 14:00:00 14:00:00 MANINDER Seybol d 2023-02-11 2023-02-11 Outpatient USHA ROSA [id number] Usha 00:00:00 00:00:00 MANINDER Seybol d 2023-02-11 2023-02-11 Outpatient USHA ROSA [id number] Usha 00:00:00 00:00:00 JINU Seybol d 2023-02-10 2023-02-10 Outpatient USHA ROSA [id number] Usha 11:00:00 11:00:00 MANINDER Seybol d 2023-02-05 2023-02-05 Outpatient USHA HE [id number] Usha 00:00:00 00:00:00 CRISTI Seybol d 2023-01-31 2023-01-31 Outpatient TRED47 USHA VITALE [id number] Usha 11:00:00 11:00:00 Seybol d 2023-01-28 2023-01-28 Outpatient USHA PIERRE [id number] Usha 16:00:00 16:00:00 FISAYOMI Seybo ld 2023-01-24 2023-01-24 Outpatient TRED45 USHA VITALE [id number] Usha 09:45:00 09:45:00 Seybol d 2023-01-24 2023-01-24 Outpatient USHA ROSA [id number] Usha 09:30:00 09:30:00 JINU Seybol d 2023-01-24 2023-01-24 Outpatient USHA ROSA [id number] Usha 00:00:00 00:00:00 JINU Seybol d 2023-01-08 2023-01-08 Outpatient USHA HE [id number] Usha 00:00:00 00:00:00 CRISTI Seybol d 2023-01-08 2023-01-08 Outpatient USHA HE [id number] Usha 00:00:00 00:00:00 CRISTI Seybol d 2023-01-07 2023-01-07 Outpatient USHA HE [id number] Usha 00:00:00 00:00:00 CRISTI Seybol d 2023-01-07 2023-01-07 Outpatient USHA HE [id number] Usha 00:00:00 00:00:00 CRISTI Seybol d 2023-01-06 2023-01-06 Outpatient LAB90 USHA VITALE [id number] Usha 12:25:00 12:25:00 Seybol d 2023-01-06 2023-01-06 Outpatient USHA HE [id number] Usha 11:30:00 11:30:00 CRISTI Seybol d 2023-01-02 2023-01-02 Outpatient USHA ARANA [id number] Usha 11:00:00 11:00:00 SHIRIN Seybol d 2022-01-25 2022-01-25 [facility] Ellis Reyes [facility] [id number] [facility] 03:13:00 15:34:00 Apollo Gamboa [facility] 2022-01-25 2022-01-25 Inpatient ER SHIEROS, [facility] Internal [id number] [facility] 03:13:00 15:34:00 APOLLO Med 2022-01-25 2022-01-[address] [facility] [id number] 11:30:00 11:50:00 Iqra [facility] 2022-01-25 2022-01-[address] [facility] [id number] [facility] 11:30:00 11:46:00 Event Andres [facility] 2022-01-25 2022-01-25 Travel [facility] [id number] [facility] 00:[facility]00 00:00:00 [facility] 2021-11-15 2021-11-15 Outpatient R SUZY [facility] [id number] Univers 10:30:00 10:30:00 KRISTEN [facility] 2021-06-21 2021-06-21 Telephone TY Garcia [id number] Univers 00:00:00 00:00:00 Jo [place] [id number] it [facility] [id number] Adarsh as [phone] [address] 2021-06-20 2021-06-20 Outpatient R SHAHEEN [facility] [id number] Univers 18:45:00 18:45:00 SUSSY melissa o [facility] 2021-06-20 2021-06-20 Laboratory Only, Ang Db Test [facility] 1.[facility].8 40.114 [id number] Univers 18:18:18 18:33:18 Only [facility] [id number] [facility] [id number] Adarsh as Gabino?Blea [id number] In [id number] [facility] 2021-05-03 2021-05-03 Outpatient R ALEX [facility] [id number] Univers 11:30:00 11:30:00 JESUS trores [facility] 2021-01-03 2021-01-03 Outpatient R [facility] [id number] Univers 11:45:00 11:45:00 [facility] Results Test Description Test Time Test Comments Results Result [facility] e Comments U/S, ABDOMINAL, 2022-01-25 Abdomen limited LIMITED 11:40:00 area? Add comment if clarification is [facility] MARGARITO MEDINA exam:->elevated : [...] MDReport Verified Date/Time: 01/25/2022 11:40:33 Reading Location: [facility] Radiology Reading Room TITIS C ANTIBODY 2022-01-25 10:50:41 Test Item Value Reference Range Interpretation Comme nts HEPATITIS C ANTIBODY (BEAKER) (test code = 367) Nonreactive Nonrea ctive Inside Wirer ID - [id number] 05:01:42 Test Item Value Reference Range Interpretation Comments PROTIME (BEAKER) 11.0 seconds 9.3-12.0 Final Infor mation (test code = 759) (Auto Outp ut) INR (BEAKER) (test 1.00 See_Comment Final Inf ormation code = 370) (Auto Output) [Automated mess age] The system [employer] generated this result transmitted ref erence range: <=5.90. The reference range was not used to int erpret this result as normal/abnormal . RECOMMENDED COUMADIN/WARFARIN INR THERAPY RANGESSTANDARD DOSE: 2.0 - 3.0 Includes: PROPHYLAXIS for venous thrombosis, systemic embolization; TREATMENT for venous thrombosis and/or pulmonary embolus.HIGH RISK: Target INR is 2.5-3.5 for patients with mechanical heart valves.LIPID [id number] 05:01:20 Test Item Value Reference Range Interpretation [...] Borderline 130-159 High 160-189 Very High >=190 Inside Wirer ID - LITOOperator ID - LITOOperator ID - [id number] 04:58:18 Test Item Value Reference Range Interpretation Comments MAGNESIUM (BEAKER) (test code = 1.9 mg/dL 1.5-3.0 627) Inside Wirer ID - LITOOperator ID - LITOOperator ID - LITOOperator ID - LITOHEPATIC FUNCTION [id number] 04:58:00 Test Item Value Reference Range Interpretation [...] code = 69 U/L 5-50 H 347) Inside Wirer ID - LITOOperator ID - LITOOperator ID - LITOOperator ID - LITOOperator ID - LITOOperator ID - LITOOperator ID - LITOBASIC METABOLIC [id number] 04:56:19 Test Item Value Reference Range Interpretation [...] S NOT APPLICABLE FOR DIALYSIS PATIEN TS. Inside Wirer ID - LITOOperator ID - LITOOperator ID - LITOOperator ID - LITOOperator ID - LITOOperator ID - LITOOperator ID - LITOOperator ID - LITOOperator ID - [id number] 04:54:42 Test Item Value Reference Range Interpretation Comments PHOSPHORUS (BEAKER) (test code = 4.2 mg/dL 2.5-4.5 604) Inside Wirer ID - LITOHEMOGLOBIN [id number] 04:45:57 Test Item Value Reference Range Interpretation Comments HEMOGLOBIN A1C (BEAKER) (test code = 5.4 % 4.3-6.1 368) Inside Wirer ID - LITOCBC W/PLT COUNT & AUTO [id number] 04:33:32 Test Item Value Reference Range Interpretation [...] % 0-0 PERCENT (BEAKER) (test code = 2808)
--- NOTE | 2023-06-13 03:20 | ER ---
Nurse's Notes [facility] Name: Cesar Jackson Age: 37 yrs Sex: Male : 1985 Arrival Date: 06/13/2023 Time: 01:37 Bed 11 Private MD: Diagnosis: Sprain of unspecified site of left knee, initial encounter Presentation: 06/13 01:46 Chief complaint: Patient states: left knee pain of 9,onset 1900. Patient stated injured pf1 left knee while horse playing with his kids and 3 kids landed onto left knee. Coronavirus screen: Vaccine status: Patient reports receiving the 2nd dose of the covid vaccine. Client denies travel out of the [place] in the last 14 days. At this time, the client does not indicate any symptoms associated with coronavirus-19. Ebola Screen: Patient negative for fever greater than or equal to 101.5 degrees Fahrenheit, and additional compatible Ebola Virus Disease symptoms. Initial Sepsis Screen: Does the patient meet any 2 criteria? No. Patient's initial sepsis screen is negative. Does the patient have a suspected source of infection? No. Patient's initial sepsis screen is negative. Risk Assessment: Do you want to hurt yourself or someone else? Patient reports no desire to harm self or others. 01:46 Method Of Arrival: Wheelchair pf1 01:46 Acuity: EDUARDO 4 pf1 Historical: - Allergies: 01:53 No Known Allergies; pf1 - PMHx: 01:53 Hypertension; Hypercholesterolemia; pf1 - PSHx: 01:53 Left elbow surgery- 2014; gastric sleeve; pf1 - Immunization history:: Adult Immunizations up to date, Client reports receiving the 2nd dose of the Covid vaccine, Last tetanus immunization: < 5 years ago Flu vaccine is not up to date. - Social history:: Smoking status: Reported history of juuling and/or vaping. Patient uses alcohol, occasionally. Patient/guardian denies using street drugs. - Family history:: not pertinent. - Hospitalizations: : No recent hospitalization is reported. Screenin:55 [facility] ED Fall Risk Assessment (Adult) History of falling in the last 3 months, pf1 including since admission No falls in past 3 months (0 pts) Confusion or Disorientation No (0 pts) Intoxicated or Sedated No (0 pts) Impaired Gait Yes (1 pt) Mobility Assist Device Used No (0 pt) Altered Elimination No (0 pt) Score/Fall Risk Level 0 - 2 = Low Risk Oriented to surroundings, Maintained a safe environment, Educated pt \T\ family on fall prevention, incl call for assistance when getting out of bed, Assessed \T\ reinforced patient's understanding of fall precautions, Provided non-skid footwear, Hourly rounding (assess needs \T\ fall precautionary measures) done, Used ambulatory aids as needed (educated on \T\ assisted with), Used gait belt as appropriate. 01:55 Abuse screen: Denies threats or abuse. Nutritional screening: No deficits noted. pf1 Tuberculosis screening: No symptoms or risk factors identified. Assessment: 01:55 General: Appears in no apparent distress. uncomfortable, well groomed, well developed. pf1 01:55 Pain: Complains of pain in left knee Pain currently is 9 out of 10 on a pain scale. pf1 Neuro: No deficits noted. Level of Consciousness is awake, alert, obeys commands, Oriented to person, place, time, situation. Cardiovascular: No deficits noted. Capillary refill < 3 seconds Patient's skin is warm and dry. Respiratory: No deficits noted. Airway is patent Respiratory effort is even, unlabored, Respiratory pattern is regular, symmetrical. GI: No deficits noted. No signs and/or symptoms were reported involving the gastrointestinal system. : No deficits noted. No signs and/or symptoms were reported regarding the genitourinary system. EENT: No deficits noted. No signs and/or symptoms were reported regarding the EENT system. Derm: No deficits noted. No signs and/or symptoms reported regarding the dermatologic system. Musculoskeletal: Circulation, motion, and sensation intact. Capillary refill < 3 seconds, Range of motion: limited in left knee. 02:30 Reassessment: Patient appears in no apparent distress at this time. Patient and/or pf1 family updated on plan of care and expected duration. Pain level reassessed. Patient is alert, oriented x 3, equal unlabored respirations, skin warm/dry/pink. Patient states symptoms have improved. Vital Signs: 01:46 BP 137 / 92; Pulse 73; Resp 16; Temp 98.3; Pulse Ox 99% on R/A; Weight 92.53 kg; Height pf1 5 ft. 6 in. ; Pain 9/10; 03:30 BP 131 / 76; Pulse 74; Resp 16; Pulse Ox 100% ; pf1 01:46 Body Mass Index 32.93 (92.53 kg, 167.64 cm) pf1 01:46 Pain Scale: Adult pf1 ED Course: 01:40 Patient arrived in ED. jj6 01:41 Brant Moss MD is Attending Physician. rn 01:53 Triage completed. pf1 01:55 Patient has correct armband on for positive identification. Bed in low position. Call pf1 light in reach. 01:55 Provided Education on: medication administration education. pf1 01:55 Arm band placed on right wrist. pf1 02:09 XRAY Knee LEFT 3 view In Process Unspecified. EDMS 03:41 No provider procedures requiring assistance completed. IV discontinued, intact, pf1 bleeding controlled, No redness/swelling at site. Pressure dressing applied. Administered Medications: 03:20 Drug: Ketorolac IM 30 mg Route: IM; Site: left gluteus; pf1 03:41 Follow up: Response: No adverse reaction; Marked relief of symptoms; Pain is decreased pf1 Medication: 03:42 VIS not applicable for this client. pf1 Outcome: 03:18 Discharge ordered by . rn 03:42 Discharged to home via wheelchair. pf1 03:42 Condition: stable 03:42 Discharge instructions given to patient, Instructed on discharge instructions, follow up and referral plans. Demonstrated understanding of instructions, follow-up care. 03:44 Patient left the ED. pf1 Signatures: Dispatcher [employer] EDMA Brant Moss MD MD rn Jeffries, Jennifer [facility] Michelle Ann RN RN pf1
--- NOTE | 2023-06-13 03:20 | EDPHYS ---
Physician Documentation [facility] Name: Cesar Jackson Age: 37 yrs Sex: Male : 1985 Arrival Date: 06/13/2023 Time: 01:37 Bed 11 Private MD: ED Physician Brant Moss HPI: 06/13 02:02 This 37 yrs old Male presents to ER via Wheelchair with complaints of Knee rn Injury. 02:02 The patient presents with decreased range of motion, an injury, pain. The complaints rn affect the left knee. Onset: The symptoms/episode began/occurred today. Modifying factors: The symptoms are alleviated by remaining still, the symptoms are aggravated by movement, weight bearing, bending knee. Severity of symptoms: At their worst the symptoms were moderate, in the emergency department the symptoms are unchanged. The patient has not experienced similar symptoms in the past. Reports wrestling with kids and hurt left knee. Did not fall directly on the, was more of a twisting and lateral directional force on left knee. No pop heard. Limping but pain with range of motion.. Historical: - Allergies: 01:53 No Known Allergies; pf1 - PMHx: 01:53 Hypertension; Hypercholesterolemia; pf1 - PSHx: 01:53 Left elbow surgery- 2014; gastric sleeve; pf1 - Immunization history:: Adult Immunizations up to date, Client reports receiving the 2nd dose of the Covid vaccine, Last tetanus immunization: < 5 years ago Flu vaccine is not up to date. - Social history:: Smoking status: Reported history of juuling and/or vaping. Patient uses alcohol, occasionally. Patient/guardian denies using street drugs. - Family history:: not pertinent. - Hospitalizations: : No recent hospitalization is reported. ROS: 02:02 Constitutional: Negative for fever, chills, and weight loss, MS/Extremity: Positive for rn left knee injury and pain Exam: 02:02 Constitutional: This is a well developed, well nourished patient who is awake, alert, rn and in no acute distress. MS/ Extremity: Pulses equal, no cyanosis. Neurovascular intact. Mild tenderness along medial left knee. No significant swelling. No tenderness of patella. No tenderness along patellar tendon. No tenderness along lateral edge of knee. No proximal fibular or tibia tenderness. Vital Signs: 01:46 BP 137 / 92; Pulse 73; Resp 16; Temp 98.3; Pulse Ox 99% on R/A; Weight 92.53 kg; Height pf1 5 ft. 6 in. ; Pain 9/10; 03:30 BP 131 / 76; Pulse 74; Resp 16; Pulse Ox 100% ; pf1 01:46 Body Mass Index 32.93 (92.53 kg, 167.64 cm) pf1 01:46 Pain Scale: Adult pf1 MDM: 01:41 Patient medically screened. rn 03:17 Differential diagnosis: closed fracture, contusion, Ligament injury, tendon injury, rn sprain. Data reviewed: vital signs, nurses notes, radiologic studies, plain films, and as a result, I will discharge patient. Independent interpretation of the following test(s) in the Emergency Department X-Ray: My interpretation is X-ray left knee images negative for acute fracture or dislocation per my interpretation.. Counseling: I had a detailed discussion with the patient and/or guardian regarding the historical points, exam findings, and any diagnostic results supporting the discharge/admit diagnosis, radiology results, the need for outpatient follow up, to return to the emergency department if symptoms worsen or persist or if there are any questions or concerns that arise at home. Special discussion: I discussed with the patient/guardian in detail that at this point there is no indication for admission to the hospital. It is understood, however, that if the symptoms persist or worsen the patient needs to return immediately for re-evaluation. 03:17 ED course: No acute findings on x-ray. Will wrap knee. Recommend MRI if symptoms do not rn improve or worsen.. 06/13 01:47 Order name: XRAY Knee LEFT 3 view rn 06/13 02:56 Order name: Adi wrap-joint; Complete Time: 03:32 rn Administered Medications: 03:20 Drug: Ketorolac IM 30 mg Route: IM; Site: left gluteus; pf1 03:41 Follow up: Response: No adverse reaction; Marked relief of symptoms; Pain is decreased pf1 Disposition Summary: 06/13/23 03:18 Discharge Ordered Location: Home rn Problem: new rn Symptoms: have improved rn Condition: Stable rn Diagnosis - Sprain of unspecified site of left knee, initial encounter rn Followup: rn - With: Private Physician - When: As needed - Reason: Recheck today's complaints, Re-evaluation by your physician Discharge Instructions: - Discharge Summary Sheet rn - Knee Sprain, Adult rn Forms: - Medication Reconciliation Form rn - Thank You Letter rn - Antibiotic collections attorney - Prescription Opioid Use rn - Patient Portal Instructions rn - Leadership Thank You Letter rn Signatures: Dispatcher [employer] Brant Asif MD MD rn Finley, Pamala, RN RN pf1
[2023-06-13] MEDS ORDERED: KETOROLAC 30 MG/ML INJ ONE (03:33)
[2023-06-13 04:05] VITALS: TEMP 98.3
[2023-06-13 04:07] VITALS: BP 131/76; O2SAT 100
--- NOTE | 2023-06-13 19:35 | RAD REPORT ---
EXAM DESCRIPTION: RAD - Knee Left 3 View - 06/13/2023 2:07 am ADDENDUM #1 Please disregard original report findings and impression. Correct findings and impression as follows: FINDINGS: 3 views of the left knee. Normal mineralization. No acute fracture or dislocation. Joint spaces are maintained. No significant distention. IMPRESSION: No acute osseous abnormality of the left knee. Electronically signed by: Rachelle Kitchen MD 06/13/2023 3:02 AM CDT End of Addendum EXAM DESCRIPTION: Knee Left 3 View CLINICAL HISTORY: 37 years Male PAIN COMPARISON: None FINDINGS: Lung volumes adequate. Cardiac silhouette is normal in size. No pneumothorax. No large pleural effusion. No focal consolidation. No acute bony finding. IMPRESSION: No acute cardiopulmonary abnormality. Electronically signed by: Rachelle Kitchen MD 06/13/2023 2:32 AM CDT Due to temporary technical issues with the PACS/Fluency reporting system, reports are being signed by the in house radiologists without review as a courtesy to insure prompt reporting. The interpreting radiologist is fully responsible for the content of the report.
== END 2023-06-13 03:44 | disposition home or self-care (01) ==
LOC: ER 01:37
DX: S83.92XA Sprain of unspecified site of left knee, initial encounter (principal)
CPT/HCPCS: 96372; 99284

== ENCOUNTER 2024-12-06 18:21 | Inpatient (IN) | payer SELFPAY ==
--- NOTE | 2024-12-06 19:35 | RAD REPORT ---
EXAM: CT brain without contrast HISTORY: Headache COMPARISON: None TECHNIQUE: Multiple contiguous axial images were obtained and a CT of the brain without contrast.. Sagittal and coronal reconstruction performed. Automated exposure control, adjustment of the mA and/or kV according to patient size, and/or iterative reconstruction. Unless otherwise specified, incidental f indings do not require dedicated imaging follow-up FINDINGS: An intracranial bleed is not seen Mild cerebellar tonsillar ectopia Ventricles are normal caliber No extra-axial fluid collection noted No significant hypodensity within the brain No fluid within the visualized sinuses or mastoids noted. IMPRESSION: No acute intracranial abnormality noted. If the patient continues to have symptoms to suggest an acute intracranial abnormality then MRI of th e brain would be recommended.
[2024-12-06 20:04] LABS: Absolute Basophils 0.1 K/uL (0-0.5); Absolute Eosinophils 0.1 K/uL (0-0.5); Absolute Lymphocytes (CBC) 2.1 K/uL (0.7-4.9); Absolute Monocytes 0.4 K/uL (0.1-1.3); Basophils % 0.8 % (0-1.3); Lymphocytes % 32.1 % (15.3-44.8); MCH 17.9 pg (27.0-35.0); MCHC 29.5 g/dL (32.0-36.0); MCV 60.9 fL (80-100); Monocytes % 5.7 % (3.3-12.3); Neutrophils % 60.4 % (41.7-73.7); Nucleated Red Blood Cells % 0.2 % (0-0); Platelets 495 thou/uL (152-406); RBC Red Blood Cell Count 2.79 M/uL (4.33-5.43)
[2024-12-06 20:04] LABS: Specific Gravity 1.022 (1.005-1.030); Urine Bilirubin NEGATIVE (Negative); Urine Blood Negative (Negative); Urine Clarity Clear (Clear); Urine Color Light-Yellow (Yellow); Urine Glucose NEGATIVE (Negative); Urine Ketones NEGATIVE (Negative); Urine Microscopic Reflex YN NO UMIC; Urine Nitrite NEGATIVE (Negative); Urine Protein NEGATIVE (Negative); Urine Urobilinogen Normal (Normal)
[2024-12-06 20:22] LABS: ALT/SGPT 19 U/L (16-61); Albumin 3.6 g/dL (3.4-5.0); Alkaline Phosphatase 44 U/L (45-117); Anion Gap 9.9 mEq/L (5.0-15.0); BUN Blood Urea Nitrogen 14 mg/dL (7-18); Bicarbonate 25 mEq/L (21-32); Bilirubin Total 0.2 mg/dL (0.2-1.0); Globulin 3.7 g/dL (2.3-3.5); Glomerular Filtration Rate 110 ml/min (=/>90); Glucose Level 100 mg/dL (74-106); Magnesium 2.1 mg/dL (1.6-2.4); Potassium 3.9 mEq/L (3.5-5.1); Protein, Total 7.3 g/dL (6.4-8.2); Sodium Level 135 mEq/L (136-145); Troponin High Sensitivity 4.9 pg/mL (<58.9)
[2024-12-06 20:23] LABS: AST/SGOT < 10 U/L (15-37); Bilirubin Direct < 0.2 mg/dL (0-0.2)
--- NOTE | 2024-12-06 20:29 | RAD REPORT ---
Procedure: Chest Single View HISTORY: Shortness of breath COMPARISON: 2023 FINDINGS: The lungs appear clear of acute infiltrate. No significant pleural effusion noted. The heart is normal size. IMPRESSION: No acute abnormality is displayed.
--- NOTE | 2024-12-06 21:19 | ER ---
Nurse's Notes [facility] Name: Cesar Jackson Age: 39 yrs Sex: Male : 1985 Arrival Date: 12/06/2024 Time: 18:21 Bed 18 Private MD: Diagnosis: Anemia, unspecified Presentation: 12/06 18:36 Chief complaint: Right sided headache, dizziness, and nausea x 1 week. Coronavirus hb screen: At this time, the client does not indicate any symptoms associated with coronavirus-19. Ebola Screen: No symptoms or risks identified at this time. Initial Sepsis Screen: Does the patient meet any 2 criteria? No. Patient's initial sepsis screen is negative. Does the patient have a suspected source of infection? No. Patient's initial sepsis screen is negative. Risk Assessment: Do you want to hurt yourself or someone else? Patient reports no desire to harm self or others. Onset of symptoms was November 29, 2024. 18:36 Method Of Arrival: Ambulatory hb 18:36 Acuity: EDUARDO 3 hb Historical: - Allergies: 18:37 No Known Allergies; hb - PMHx: 18:37 Hypercholesterolemia; Hypertension; hb - PSHx: 18:37 gastric sleeve; Left elbow surgery- 2014; hb - Immunization history:: Adult Immunizations up to date. - Infectious Disease History:: Denies. - Social history:: Smoking status: Patient reports the use of cigarette tobacco products. Vital Signs: 18:36 BP 133 / 86; Pulse 96; Resp 16; Temp 97.9(TE); Pulse Ox 100% on R/A; hb 19:36 BP 138 / 67 LA (auto/reg); Pulse 86; Resp 16 S; Temp 98.7(O); Pulse Ox 97% on R/A; sa1 Weight 90.72 kg (R); Height 5 ft. 6 in. (R); 19:36 Body Mass Index 32.28 (90.72 kg, 167.64 cm) sa1 ED Course: 18:22 Patient arrived in ED. mr 18:23 Loree Hanson FNP-C is PHCP. kb 18:23 Kevin Cannon MD is Attending Physician. kb 18:37 Triage completed. hb 18:38 Arm band placed on. hb 19:13 Deysi Mcdowell, RN is Primary Nurse. kd3 19:28 CT Head Brain wo Cont In Process Unspecified. EDMS 19:40 EKG done, by ED staff, reviewed by Loree WILSON. sa1 19:53 Inserted saline lock: 20 gauge in left antecubital area, using aseptic technique. Blood sa1 collected. Flushed with 10 mL NS. 20:11 Chest Single View XRAY In Process Unspecified. EDMS 21:18 Kelsy Bernal MD is Hospitalizing Provider. kb 22:59 Hematocrit Sent. br2 22:59 Hemoglobin Sent. br2 22:59 Magnesium Sent. br2 22:59 Magnesium Sent. br2 22:59 Magnesium Sent. br2 22:59 Magnesium Sent. br2 Administered Medications: No medications were administered Outcome: 21:18 Decision to Hospitalize by Provider. kb 12/07 01:57 Patient left the ED. kd3 Signatures: Dispatcher [employer] EDMT Loree Hanson FNP-C SINGLE STAYER OPERATOR-CkXenia Muhammad, Reg Reg mr Jana Ascencio, RN RN hb Deysi Mcdowell, RN RN kd3 Sultan Clementina sa1 Chelsea Sams, RN RN br2 Corrections: (The following items were deleted from the chart) 12/06 18:38 18:38 Social history: Smoking status: Patient denies any tobacco usage or history of. hbhb 18:39 18:36 BP 133 / 86; Pulse 96bpm; Resp 16bpm; Pulse Ox 100% RA; Temp 97.9F Temporal; hb hb
--- NOTE | 2024-12-06 21:19 | EDPHYS ---
Physician Documentation [facility] Name: Cesar Jackson Age: 39 yrs Sex: Male : 1985 Arrival Date: 12/06/2024 Time: 18:21 Bed 18 Private MD: ED Physician Kevin Cannon HPI: 12/06 18:54 This 39 yrs old Male presents to ER via Ambulatory with complaints of Head kb pain. 18:54 Pt is a 39 year old male who presents for headache to right side of head that has been kb ongoing for about a week. Also reports dizziness, fatigue and shortness of breath on exertion that started 3 weeks ago and has been getting progressively worse. Denies fever. States he has had some blood in his stool, but he has hemorrhoids so that is normal for him. States he hasn't had a lot of blood in his stool and it is no different than when he has had problems with hemorrhoids in the past. . Historical: - Allergies: 18:37 No Known Allergies; hb - PMHx: 18:37 Hypercholesterolemia; Hypertension; hb - PSHx: 18:37 gastric sleeve; Left elbow surgery- 2015; hb - Immunization history:: Adult Immunizations up to date. - Infectious Disease History:: Denies. - Social history:: Smoking status: Patient reports the use of cigarette tobacco products. ROS: 18:54 Constitutional: As per HPI kb Exam: 18:54 Constitutional: This is a well developed, well nourished patient who is awake, alert, kb and in no acute distress. Head/Face: Normocephalic, atraumatic. ENT: Moist Mucous membranes Cardiovascular: Regular rate Respiratory: Respirations even and unlabored. No increased work of breathing. Talking in full sentences Abdomen/GI: Soft, non-tender. No distention MS/ Extremity: Pulses equal, no cyanosis. Neurovascular intact. Full, normal range of motion. Neuro: Awake and alert, GCS 15, oriented to person, place, time, and situation. 18:54 Skin: Appearance: Color: pale, 19:42 ECG was reviewed by the Attending Physician. kb 20:46 Abdomen/GI: Rectal exam: is unremarkable, kb Vital Signs: 18:36 BP 133 / 86; Pulse 96; Resp 16; Temp 97.9(TE); Pulse Ox 100% on R/A; hb 19:36 BP 138 / 67 LA (auto/reg); Pulse 86; Resp 16 S; Temp 98.7(O); Pulse Ox 97% on R/A; sa1 Weight 90.72 kg (R); Height 5 ft. 6 in. (R); 19:36 Body Mass Index 32.28 (90.72 kg, 167.64 cm) sa1 MDM: 18:23 Medical Screening Exam initiated kb 18:56 Data reviewed: vital signs, nurses notes. Historians other than the Patient: kb Spouse/Significant Other: . 21:15 Differential diagnosis: dehydration, anemia, chf. Consideration of kb Admission/Observation Patient was admitted/placed on observation. Escalation of care including admission/observation considered. Management of patient was discussed with the following: Hospitalist: Pt accepted for admission under Dr Bernal by CONSTANCE Vanegas. Sterile Technician: Dr Wadsworth accepts pt for consult. Wants bleeding scan done in AM, communicated to Guilherme. . Counseling: I had a detailed discussion with the patient and/or guardian regarding the historical points, exam findings, and any diagnostic results supporting the discharge/admit diagnosis, lab results, radiology results, the need for further work-up and treatment in the hospital. 12/06 18:44 Order name: Basic Metabolic Panel; Complete Time: 20:28 kb 12/06 18:44 Order name: CBC with Diff; Complete Time: 21:24 kb 12/06 18:44 Order name: Hepatic Function; Complete Time: 20:28 kb 12/06 18:44 Order name: Magnesium; Complete Time: 20:28 kb 12/06 18:44 Order name: Troponin High Sensitivity; Complete Time: 20:28 kb 12/06 18:44 Order name: Urinalysis w/ reflexes; Complete Time: 20:07 kb 12/06 20:33 Order name: Type And Screen kb 12/06 20:53 Order name: PT-INR; Complete Time: 21:46 kb 12/06 20:53 Order name: Ptt, Activated; Complete Time: 21:46 kb 12/06 21:22 Order name: CBC Smear Scan; Complete Time: 21:24 EDMS 12/06 21:34 Order name: Packed RBC Leukored EDMS 12/06 22:28 Order name: CBC with Automated Diff EDMS 12/06 22:28 Order name: CBC with Automated Diff EDMS 12/06 22:28 Order name: CBC with Automated Diff EDMS 12/06 22:28 Order name: CBC with Automated Diff EDMS 12/06 22:28 Order name: Comprehensive Metabolic Panel EDMS 12/06 22:28 Order name: Comprehensive Metabolic Panel EDMS 12/06 22:28 Order name: Comprehensive Metabolic Panel EDMS 12/06 22:28 Order name: Comprehensive Metabolic Panel EDMS 12/06 22:28 Order name: Magnesium EDMS 12/06 22:28 Order name: Magnesium EDMS 12/06 22:28 Order name: Magnesium EDMS 12/06 22:28 Order name: Magnesium EDMS 12/06 22:29 Order name: Hematocrit EDMS 12/06 22:29 Order name: Hemoglobin EDMS 12/06 22:42 Order name: ABO/RH no charge; Complete Time: 23:35 EDMS 12/06 18:44 Order name: CT Head Brain wo Cont; Complete Time: 19:38 kb 12/06 18:44 Order name: Chest Single View XRAY; Complete Time: 20:31 kb 12/06 22:28 Order name: CONS Physician Consult EDMS 12/06 18:44 Order name: Cardiac monitoring; Complete Time: 22:46 kb 12/06 18:44 Order name: EKG - Nurse/Tech; Complete Time: 19:41 kb 12/06 18:44 Order name: IV Saline Lock; Complete Time: 22:46 kb 12/06 18:44 Order name: Labs collected and sent; Complete Time: 22:46 kb 12/06 18:44 Order name: NPO; Complete Time: 22:46 kb 12/06 18:44 Order name: O2 Per Protocol; Complete Time: 22:46 kb 12/06 18:44 Order name: O2 Sat Monitoring; Complete Time: 22:46 kb EC:42 Rate is 87 beats/min. Rhythm is regular. QRS [place] is Normal. NM interval is normal at kb 150 msec. QRS interval is normal at 88 msec. QT interval is normal at 411 msec. Administered Medications: No medications were administered Disposition Summary: 12/06/24 21:18 Hospitalization Ordered Notes: Hospitalization Status: Observation kb Provider: Kesly Bernal Condition: Stable kb Problem: new kb Symptoms: are unchanged kb Bed/Room Type: Standard kb Location: Intensive Care Unit(12/07/24 01:17) devika Room Assignment: 6-(12/07/24 01:17) Diagnosis - Anemia, unspecified Forms: - Medication Reconciliation Form kb - SBAR form kb - Leadership Thank You Letter kb Critical care time excluding procedures: 21:18 Critical care time: Bedside Care: 10 minutes, Consultation: 10 minutes, Family kb Intervention: 10 minutes. Total time: 30 minutes Addendum: 12/16/2024 16:22 Co-signature as Attending Physician, Kevin Cannon MD I agree with the assessment and c villatoro plan of care. Signatures: Dispatcher [employer] EDIA Loree Hanson, EXECUTIVE ASST-C MARICARMEN-Megan Lee RN RN Kevin Scott MD MD cha Baxter, Heather RN RN hb Corrections: (The following items were deleted from the chart) 12/06 18:38 18:38 Social history: Smoking status: Patient denies any tobacco usage or history of. hbhb 18:45 18:45 BASIC METABOLIC PANEL+C.LAB.BRZ ordered. EDMS EDMS 18:45 18:45 CBC+H.LAB.BRZ ordered. EDMS EDMS 18:45 18:45 HEPATIC FUNCTION+C.LAB.BRZ ordered. EDMS EDMS 18:45 18:45 MAGNESIUM+C.LAB.BRZ ordered. EDMS EDMS 18:45 18:45 Troponin High Sensitivity+C.LAB.BRZ ordered. EDMS EDMS 18:45 18:45 Urinalysis+U.LAB.BRZ ordered. EDMS EDMS 18:45 18:45 Head Brain Wo Cont+CT.RAD.BRZ ordered. EDMS EDMS 18:45 18:45 Chest Single View+RAD.RAD.BRZ ordered. EDMS EDMS 22:34 22:29 Packed RBC Leukored ordered. EDMS EDMS 22:34 22:30 ABO/RH typing ordered. EDMS EDMS 22:34 22:30 Antibody Screen ordered. EDIA EDIA 12/07 01:17 12/06 21:18 Telemetry/MedSurg (observation) [facility] 12/07 01:17 12/06 21:18 [facility]
[2024-12-06 21:21] LABS: Anisocytosis 1+; Blood Morphology Comment NOTED (NOT SEEN); Hypochromasia 2+; Microcytosis 2+; Platelet Estimate INCR; White Blood Cell Scan OK (OK)
[2024-12-06 21:22] LABS: Ovalocytes 1+; Poikilocytosis 1+; Polychromasia 1+
[2024-12-06 21:37] LABS: PT Prothrombin Time 11.7 SECONDS (10-13.0); PTT, Activated Partial Thromb 26.1 SECONDS (27.2-37.4); Protime INR 1.03
[2024-12-06] MEDS ORDERED: ONDANSETRON 4 MG/2 ML VIAL IV PRN (22:22)
[2024-12-06] MEDS ORDERED: DIPHENHYDRAMINE 50 MG/ML VIAL IV PRN (22:28)
[2024-12-06] MEDS: ACETAMINOPHEN 500 MG TAB PO ONE (22:29)
--- NOTE | 2024-12-06 22:32 | P.HP ---
Certification for Inpatient Patient admitted to: Inpatient With expected LOS: <2 Midnights <Gila Vanegas - Last Filed: 12/07/24 04:25> Patient History Date of Service: 12/07/24 Reason for admission: Severe anemia History of Present Illness: 39-year-old male with a past medical history hypertension, hyperlipidemia, obesity, history of gastric bypass, presented to the emergency room with GI bleeding. He reports GI bleeding x 2 weeks he reports daily 1-2 stools with bright red rectal bleeding. He reports after gastric bypass, he has not been treating hypertension, hyperlipidemia, he reports taking Excedrin daily for the last 2 days for headache. He denies abdominal pain, nausea vomiting, fever, recent infection. He reports history of anemia, with prior episodes of bleeding. Has been untreated. ER evaluation shows hemoglobin of 5.0, hematocrit at 17.0, platelets at 495, chest x-ray clear, CT of the head no acute abnormality. Plan to admit for GI bleed, severe anemia, GI to consult - Past Medical/Surgical History -: Hypertension -: Hyperlipidemia -: Gastric bypass -: Elbow - Social History Smoking Status: Former smoker Alcohol use: No <Gila Vanegas - Last Filed: 12/07/24 04:25> Date of Service: 12/07/24 <Kelsy Bernal - Last Filed: 12/11/24 02:39> Allergies No Known Allergies Allergy (Unverified 12/05/16 13:05) Home Medications: lisinopriL [Lisinopril] 20 mg PO DAILY 12/07/24 Hydrocort Acetate Suppos [Anucort-Hc Suppository*] 25 mg [place] DAILY 30 Days #1 supp 12/09/24 Pantoprazole [Protonix Tab*] 40 mg PO DAILYAC 30 Days #30 tab 12/09/24 Review of Systems 10-point ROS is otherwise unremarkable <Gila Vanegas - Last Filed: 12/07/24 04:25> Physical Examination - Physical Exam General: Alert, In no apparent distress, Oriented x3, Other (pale) HEENT: Atraumatic, Normocephalic, PERRLA Neck: Supple, 2+ carotid pulse no bruit, JVD not distended Respiratory: Clear to auscultation bilaterally, Normal air movement Cardiovascular: No edema, Normal pulses, Regular rate/rhythm, Normal S1 S2 Capillary refill: <2 Seconds Gastrointestinal: Normal bowel sounds, Soft and benign, Non-distended Musculoskeletal: No clubbing, No swelling Integumentary: No rashes, No breakdown Neurological: Normal gait, Normal speech, Normal strength at 5/5 x4 extr - Studies Laboratory Data (last 24 hrs) 12/06/24 12/06/24 12/06/24 21:16 19:53 19:53 WBC 6.70 Hgb 5.0 L* Hct 17.0 L Plt Count 495 H PT 11.7 INR 1.03 APTT 26.1 L Sodium 135 L Potassium 3.9 BUN 14 Creatinine 0.92 Glucose 100 Magnesium 2.1 Total Bilirubin 0.2 AST < 10 L ALT 19 Alkaline Phosphatase 44 L <Gila Vanegas - Last Filed: 12/07/24 04:25> Assessment and Plan - Problems (Diagnosis) (1) GIB (gastrointestinal bleeding) Status: Acute Qualifiers: Gastritis type: unspecified gastritis (2) Severe anemia Status: Acute (3) History of gastric bypass Status: Chronic (4) Hypertension Status: Chronic Qualifiers: Hypertension type: unspecified Qualified Code(s): I10 - Essential (primary) hypertension (5) Hyperlipidemia Status: Chronic Qualifiers: Hyperlipidemia type: unspecified Qualified Code(s): E78.5 - Hyperlipidemia, unspecified - Plan Admit to ICU -GI consult -Pantoprazole drip -12/06 N.p.o. in for GI to eval -Nuclear med bleeding scan ordered -Type and cross -Transfused 2 units of packed red blood cells -Trend H&H -anemia panel Full code DVT SCDs Diet n.p.o. Disposition Home independent prior Discharge Plan: Home - Advance Directives Does patient have a Living Will: No Does patient have a Durable POA for Healthcare: No - Code Status/Comfort Care Code Status: Full Code Critical Care: Yes Time Spent Managing Pts Care (In Minutes): 65 <Gila Vanegas - Last Filed: 12/07/24 04:25> Date of Service: 12/07/24 Chart has been reviewed. Events of the last 24 hours have been noted. Case discussed with DIONE. I performed a substantial part of the MDM during this patient's care today. I personally made or approved the documented management plan and acknowledge its risk of complications. I agree with the findings and documentation provided in the DIONE's notes <Kelsy Bernal - Last Filed: 12/11/24 02:39>
[2024-12-06] MEDS ORDERED: NA CHLORIDE 0.9% 250 ML IV SCH (23:00)
[2024-12-06] MEDS: NA CHLORIDE 0.9% 1,000 ML IV SCH (23:00)
[2024-12-06] MEDS: PANTOPRAZOLE INJ 80 MG in NA CHLORIDE 0.9% 250 ML IV SCH (23:00)
[2024-12-06] MEDS ORDERED: ACETAMINOPHEN 500 MG TAB ONE (23:47)
[2024-12-06] MEDS ORDERED: PANTOPRAZOLE 40 MG INJ ONE (23:47)
[2024-12-06] MEDS ORDERED: NA CHLORIDE 0.9% 250 ML ONE (23:48)
[2024-12-06] MEDS ORDERED: NA CHLORIDE 0.9% 1,000 ML ONE (23:48)
[2024-12-07] MEDS ORDERED: NA CHLORIDE 0.9% 250 ML ONE (00:32)
[2024-12-07] MEDS ORDERED: PANTOPRAZOLE 40 MG INJ ONE (00:32)
[2024-12-07 05:45] LABS: Absolute Eosinophils 0.1 K/uL (0-0.5); Absolute Lymphocytes (CBC) 2.7 K/uL (0.7-4.9); Absolute Monocytes 0.4 K/uL (0.1-1.3); Basophils % 0.3 % (0-1.3); Eosinophils % 1.8 % (0-4.4); Hematocrit 19.9 % (39.6-49.0); Hemoglobin 6.2 g/dL (13.6-17.9); Lymphocytes % 43.4 % (15.3-44.8); MCH 20.7 pg (27.0-35.0); MCHC 31.1 g/dL (32.0-36.0); MCV 66.7 fL (80-100); MPV 7.1 fL (7.6-11.3); Neutrophils % 47.5 % (41.7-73.7); Nucleated Red Blood Cells % 0.2 % (0-0); Platelets 405 thou/uL (152-406); RBC Red Blood Cell Count 2.98 M/uL (4.33-5.43); Red Cell Distribution Width 23.6 % (12.1-15.2)
[2024-12-07 06:08] LABS: ALT/SGPT 17 U/L (16-61); Albumin 3.2 g/dL (3.4-5.0); Alkaline Phosphatase 41 U/L (45-117); Anion Gap 7.9 mEq/L (5.0-15.0); BUN Blood Urea Nitrogen 13 mg/dL (7-18); Bicarbonate 26 mEq/L (21-32); Bilirubin Total 0.5 mg/dL (0.2-1.0); Globulin 3.2 g/dL (2.3-3.5); Glomerular Filtration Rate 115 ml/min (=/>90); Glucose Level 90 mg/dL (74-106); Magnesium 2.1 mg/dL (1.6-2.4); Potassium 3.9 mEq/L (3.5-5.1); Protein, Total 6.4 g/dL (6.4-8.2); Sodium Level 136 mEq/L (136-145)
[2024-12-07 06:11] LABS: AST/SGOT < 10 U/L (15-37)
[2024-12-07 07:13] LABS: Percent Reticulocyte Count 1.66 % (0.4-2.05); RBC Red Blood Cell Count 2.98 M/uL (4.33-5.43)
[2024-12-07] MEDS: FLU (Fluarix Triv) TS24-25(6MOS UP)/PF 45 MCG/0.5 ML Syringe IM ONE (07:30)
[2024-12-07] MEDS: HEPARIN 500 UNIT/5 ML SYR IV ONE (08:43)
[2024-12-07 09:22] LABS: Hematocrit 22.9 % (39.6-49.0); Hemoglobin 7.1 g/dL (13.6-17.9)
--- NOTE | 2024-12-07 10:50 | P.PN ---
Date of Service: 12/07/24 Subjective: Denies any overnight events. Denies abdominal pain, fevers, chills. We discussed replacing a unit of blood. Awaiting nuclear medicine test. His is at bedside. Review of Systems 10-point ROS is otherwise unremarkable Physical Examination - Physical Exam General: Alert, In no apparent distress, Oriented x3, Other (pale) HEENT: Atraumatic, Normocephalic, PERRLA Neck: Supple, 2+ carotid pulse no bruit, JVD not distended Respiratory: Clear to auscultation bilaterally, Normal air movement Cardiovascular: No edema, Normal pulses, Regular rate/rhythm, Normal S1 S2 Capillary refill: <2 Seconds Gastrointestinal: Normal bowel sounds, Soft and benign, Non-distended Musculoskeletal: No clubbing, No swelling Integumentary: No rashes, No breakdown Neurological: Normal gait, Normal speech, Normal strength at 5/5 x4 extr - Studies Laboratory Data (last 24 hrs) 12/06/24 12/06/24 12/06/24 21:16 19:53 19:53 WBC 6.70 Hgb 5.0 L* Hct 17.0 L Plt Count 495 H PT 11.7 INR 1.03 APTT 26.1 L Sodium 135 L Potassium 3.9 BUN 14 Creatinine 0.92 Glucose 100 Magnesium 2.1 Total Bilirubin 0.2 AST < 10 L ALT 19 Alkaline Phosphatase 44 L Assessment and Plan - Problems (Diagnosis) (1) GIB (gastrointestinal bleeding) Current Visit: Yes Status: Acute Qualifiers: Gastritis type: unspecified gastritis (2) Severe anemia Current Visit: Yes Status: Acute (3) History of gastric bypass Current Visit: Yes Status: Chronic (4) Hypertension Current Visit: Yes Status: Chronic Qualifiers: Hypertension type: unspecified Qualified Code(s): I10 - Essential (primary) hypertension (5) Hyperlipidemia Current Visit: Yes Status: Chronic Qualifiers: Hyperlipidemia type: unspecified Qualified Code(s): E78.5 - Hyperlipidemia, unspecified - Plan Admit to ICU -Appreciate GI -Pantoprazole drip -Hemoglobin today at 6.2 -Order 1 more unit of PRBC -Nuclear med bleeding scan pending -Status post 2 units PRBC -Trend H&H -anemia panel Full code DVT SCDs Diet n.p.o. Disposition Home independent prior Discharge Plan: Home - Advance Directives Does patient have a Living Will: No Does patient have a Durable POA for Healthcare: No - Code Status/Comfort Care Code Status: Full Code Critical Care: Yes Time Spent Managing Pts Care (In Minutes): 65
--- NOTE | 2024-12-07 10:57 | EKG ---
Test Date: 2024-12-06 Test Time: 19:37:03 Coin Machine Servicer Repairer: MEASUREMENT RESULTS: Intervals: Rate: 87 DE: 150 QRSD: 88 QT: 342 QTc: 411 [place]: P: 47 DE: 150 QRS: 45 T: 21 INTERPRETIVE STATEMENTS: Normal sinus rhythm Normal ECG Compared to ECG 04/13/2024 04:46:48 Sinus tachycardia no longer present Electronically Signed On 12-07-24 10:56:08 CDT by Dc James
--- NOTE | 2024-12-07 11:55 | RAD REPORT ---
EXAMINATION: NM GI Blood Loss Imaging CLINICAL INDICATION: Male, 39 years old. BLEEDING, SCAN for GIB, TECHNIQUE: Dynamic AP planar flow images, followed by AP plantar images of the abdomen and pelvis, fo r a total of 60 minutes, were obtained following intravenous administration of radiotracer. Additional imaging of the pelvis obtained in posterior and oblique views. RADIOPHARMACEUTICAL: 27.4 mCi Technetium 99m tagged RBCs. COMPARISON: No prior exams. FINDINGS: Normal flow pattern along the abdominal aorta and its branches. Normal tracer accumulation within the liver and spleen initially, and within the kidneys. Mild tracer accumulation in the bladder towards the end of the exam. Radiotracer uptake by the penis incidentally noted. No focal tracer extravasation throughout the course of the small and large bowel to suggest active GI bleeding. IMPRESSION: Normal abdominal scintigraphy with no evidence of active GI bleeding.
[2024-12-07] MEDS: NA CHLORIDE 0.9% 250 ML ONE (12:10)
[2024-12-07] MEDS: MAGNESIUM CITRATE 300 ML BOT PO ONE (15:03)
[2024-12-07] MEDS: GOLYTELY 4000 ML PO ONE (16:11)
[2024-12-07] MEDS: METOCLOPRAMIDE 10 MG/2mL INJ IV SCH (16:11)
[2024-12-07 17:27] LABS: Hematocrit 28.2 % (39.6-49.0); Hemoglobin 8.9 g/dL (13.6-17.9)
[2024-12-08] MEDS: ACETAMINOPHEN 500 MG TAB PO PRN (04:19)
[2024-12-08 05:26] LABS: Absolute Basophils 0.1 K/uL (0-0.5); Absolute Eosinophils 0.2 K/uL (0-0.5); Absolute Lymphocytes (CBC) 1.9 K/uL (0.7-4.9); Absolute Monocytes 0.5 K/uL (0.1-1.3); Absolute Neutrophil 4.2 K/uL (1.8-8.0); Eosinophils % 2.5 % (0-4.4); Hematocrit 25.6 % (39.6-49.0); Hemoglobin 8.1 g/dL (13.6-17.9); Lymphocytes % 28.1 % (15.3-44.8); MCH 22.3 pg (27.0-35.0); MCHC 31.8 g/dL (32.0-36.0); MCV 70.1 fL (80-100); MPV 7.2 fL (7.6-11.3); Monocytes % 7.7 % (3.3-12.3); Neutrophils % 60.7 % (41.7-73.7); Nucleated Red Blood Cells % 0.4 % (0-0); Platelets 442 thou/uL (152-406); RBC Red Blood Cell Count 3.65 M/uL (4.33-5.43); Red Cell Distribution Width 26.4 % (12.1-15.2)
[2024-12-08 05:53] LABS: ALT/SGPT 18 U/L (16-61); Albumin 3.6 g/dL (3.4-5.0); Albumin/Globulin Ratio 1.1 (1.1-1.8); Alkaline Phosphatase 50 U/L (45-117); Anion Gap 9.8 mEq/L (5.0-15.0); BUN Blood Urea Nitrogen 10 mg/dL (7-18); Bicarbonate 24 mEq/L (21-32); Bilirubin Total 0.8 mg/dL (0.2-1.0); Globulin 3.3 g/dL (2.3-3.5); Glomerular Filtration Rate 107 ml/min (=/>90); Glucose Level 83 mg/dL (74-106); Magnesium 2.2 mg/dL (1.6-2.4); Potassium 3.8 mEq/L (3.5-5.1); Protein, Total 6.9 g/dL (6.4-8.2); Sodium Level 139 mEq/L (136-145)
[2024-12-08 05:57] LABS: AST/SGOT < 10 U/L (15-37); C-Reactive Protein < 2.90 mg/L (<3.00)
[2024-12-08] MEDS: PANTOPRAZOLE INJ 80 MG in NA CHLORIDE 0.9% 250 ML IV SCH (11:25)
[2024-12-08] MEDS ORDERED: LIDOCAINE 1% MPF 5 ML VIAL ONE ×2 (12:39→12:54)
[2024-12-08] MEDS ORDERED: propofoL 200 MG/20 ML VIAL IV ONE ×2 (12:39→12:54)
[2024-12-08] MEDS: Ringers Lactate 1,000 ML IV ONE (13:03)
[2024-12-08 14:09] VITALS: O2SAT 100
--- NOTE | 2024-12-08 16:44 | P.PN ---
Date of Service: 12/08/24 Subjective: Did well overnight. He states he thinks it may be his internal hemorrhoids is causing the bleeding. He does say he has been constipated for a long time. He is going for scope later today. Denies any fevers and chills. Denies any pain Review of Systems 10-point ROS is otherwise unremarkable Physical Examination - Physical Exam General: Alert, In no apparent distress, Oriented x3, Other (pale) HEENT: Atraumatic, Normocephalic, PERRLA Neck: Supple, 2+ carotid pulse no bruit, JVD not distended Respiratory: Clear to auscultation bilaterally, Normal air movement Cardiovascular: No edema, Normal pulses, Regular rate/rhythm, Normal S1 S2 Capillary refill: <2 Seconds Gastrointestinal: Normal bowel sounds, Soft and benign, Non-distended Musculoskeletal: No clubbing, No swelling Integumentary: No rashes, No breakdown Neurological: Normal gait, Normal speech, Normal strength at 5/5 x4 extr - Studies Laboratory Data (last 24 hrs) 12/06/24 12/06/24 12/06/24 21:16 19:53 19:53 WBC 6.70 Hgb 5.0 L* Hct 17.0 L Plt Count 495 H PT 11.7 INR 1.03 APTT 26.1 L Sodium 135 L Potassium 3.9 BUN 14 Creatinine 0.92 Glucose 100 Magnesium 2.1 Total Bilirubin 0.2 AST < 10 L ALT 19 Alkaline Phosphatase 44 L Assessment and Plan - Problems (Diagnosis) (1) GIB (gastrointestinal bleeding) Current Visit: Yes Status: Acute Qualifiers: Gastritis type: unspecified gastritis (2) Severe anemia Current Visit: Yes Status: Acute (3) History of gastric bypass Current Visit: Yes Status: Chronic (4) Hypertension Current Visit: Yes Status: Chronic Qualifiers: Hypertension type: unspecified Qualified Code(s): I10 - Essential (primary) hypertension (5) Hyperlipidemia Current Visit: Yes Status: Chronic Qualifiers: Hyperlipidemia type: unspecified Qualified Code(s): E78.5 - Hyperlipidemia, unspecified - Plan Admit to ICU -Going for colonoscopy and endoscopy today: Antral erosion and internal hemorrhoid -Pantoprazole drip -Status post 3 units PRBC -Hemoglobin stable 8.1 -Order 1 more unit of PRBC -Nuclear med bleeding scan without any acute findings -anemia panel Full code DVT SCDs Diet n.p.o. Disposition Home independent prior Discharge Plan: Home - Advance Directives Does patient have a Living Will: No Does patient have a Durable POA for Healthcare: No - Code Status/Comfort Care Code Status: Full Code Critical Care: Yes Time Spent Managing Pts Care (In Minutes): 30
[2024-12-08] MEDS: HYDROCORTISONE ACETATE 25MG SUPP PR SCH (20:06)
[2024-12-09 06:04] LABS: Absolute Basophils 0.1 K/uL (0-0.5); Absolute Eosinophils 0.2 K/uL (0-0.5); Absolute Lymphocytes (CBC) 2.8 K/uL (0.7-4.9); Absolute Monocytes 0.6 K/uL (0.1-1.3); Absolute Neutrophil 3.5 K/uL (1.8-8.0); Basophils % 0.7 % (0-1.3); Eosinophils % 2.8 % (0-4.4); Hematocrit 24.2 % (39.6-49.0); Hemoglobin 7.9 g/dL (13.6-17.9); Lymphocytes % 38.9 % (15.3-44.8); MCH 22.3 pg (27.0-35.0); MCHC 32.5 g/dL (32.0-36.0); MCV 68.6 fL (80-100); MPV 7.5 fL (7.6-11.3); Neutrophils % 49.6 % (41.7-73.7); Platelets 406 thou/uL (152-406); RBC Red Blood Cell Count 3.53 M/uL (4.33-5.43); Red Cell Distribution Width 26.4 % (12.1-15.2)
[2024-12-09 06:19] LABS: ALT/SGPT 17 U/L (16-61); Albumin 3.5 g/dL (3.4-5.0); Albumin/Globulin Ratio 1.2 (1.1-1.8); Alkaline Phosphatase 47 U/L (45-117); Anion Gap 8.7 mEq/L (5.0-15.0); BUN Blood Urea Nitrogen 9 mg/dL (7-18); Bicarbonate 26 mEq/L (21-32); Bilirubin Total 0.5 mg/dL (0.2-1.0); Globulin 2.9 g/dL (2.3-3.5); Glomerular Filtration Rate 108 ml/min (=/>90); Glucose Level 79 mg/dL (74-106); Magnesium 2.1 mg/dL (1.6-2.4); Phosphorus 4.3 mg/dL (2.5-4.9); Potassium 3.7 mEq/L (3.5-5.1); Protein, Total 6.4 g/dL (6.4-8.2); Sodium Level 139 mEq/L (136-145)
[2024-12-09 06:22] LABS: AST/SGOT < 10 U/L (15-37)
[2024-12-09] MEDS: PANTOPRAZOLE 40MG TABLET PO SCH (06:28)
[2024-12-09 06:41] VITALS: BMI 31.6
[2024-12-09 08:19] LABS: White Blood Cell Scan OK (OK)
[2024-12-09 08:20] LABS: Anisocytosis 2+; Blood Morphology Comment NOTED (NOT SEEN); Hypochromasia 1+; Microcytosis 1+; Platelet Estimate ADEQ
[2024-12-09] MEDS: POTASSIUM CL SA 10 MEQ TAB PO ONE (08:36)
[2024-12-09 08:40] VITALS: TEMP 97.8
--- NOTE | 2024-12-09 08:56 | RAD REPORT ---
EXAMINATION: Small bowel series CLINICAL INDICATION: Male, 39 years old. anemia with suspicion GI bleed COMPARISON: No prior exam. FINDINGS: Etymology Teacher film shows a nonspecific bowel gas pattern. No obstruction or free air. No suspicious calcifica tions. Gastric size and mucosal fold pattern are normal. No delay in transit of contrast into the small christopher l. Small bowel is normal in diameter with no mucosal fold thickening. No intrinsic or extrinsic mass identifiable. Terminal ileum has normal appearance. Transit time to the colon is Normal, 1 hour. No fluoroscopy was performed. Total images acquired:9 IMPRESSION: Normal small bowel series.
[2024-12-09 11:38] VITALS: BP 138/95
--- NOTE | 2024-12-09 12:40 | P.DS ---
Admission Date: 12/06/24 Discharge Date: 12/09/24 Disposition: ROUTINE DISCHARGE Discharge Condition: GOOD Reason for Admission: Severe anemia Brief History of Present Illness: 39-year-old male with a past medical history hypertension, hyperlipidemia, obesity, history of gastric bypass, presented to the emergency room with GI bleeding. He reports GI bleeding x 2 weeks he reports daily 1-2 stools with bright red rectal bleeding. He reports after gastric bypass, he has not been treating hypertension, hyperlipidemia, he reports taking Excedrin daily for the last 2 days for headache. He denies abdominal pain, nausea vomiting, fever, recent infection. He reports history of anemia, with prior episodes of bleeding Hospital Course: Is a 39-year-old male with a history of hypertension, hyperlipidemia, obesity who presented with brisk bright red bleeding per rectum. Upon admission lab work revealed a hemoglobin of 5 he was transfused with 3 units of PRBC. His hemoglobin improved to 8.9. GI was consulted and he was started on a PPI, fluid, and taken for colonoscopy and endoscopy. In addition to the colonoscopy he had a GI bleeding scan which did not reveal any acute abnormalities. Colonoscopy revealed internal hemorrhoid. Endoscopy revealed gastritis. He will continue on a PPI upon discharge. Furthermore, a small bowel series did not reveal any acute abnormalities. He will be sent home with an Anusol suppository and follow-up with his GI doctor and primary care provider. His lab work did reveal low iron level and will need further iron studies in addition to iron supplementation. The remainder of his medical problems are chronic and stable. He is medically optimized for discharge Vital Signs/Physical Exam: Temp Pulse Resp BP Pulse Ox 97.8 F 81 12 138/95 H 100 12/09/24 11:00 12/09/24 11:00 12/09/24 11:00 12/09/24 11:00 12/09/24 11:00 Laboratory Data at Discharge: WBC 7.10 thou/uL (4.3-10.9) 12/09/24 05:30 Hgb 7.9 g/dL (13.6-17.9) L 12/09/24 05:30 Hct 24.2 % (39.6-49.0) L 12/09/24 05:30 Plt Count 406 thou/uL (152-406) 12/09/24 05:30 PT 11.7 SECONDS (10-13.0) 12/06/24 21:16 INR 1.03 12/06/24 21:16 APTT 26.1 SECONDS (27.2-37.4) L 12/06/24 21:16 Sodium 139 mEq/L (136-145) 12/09/24 05:30 Potassium 3.7 mEq/L (3.5-5.1) 12/09/24 05:30 BUN 9 mg/dL (7-18) 12/09/24 05:30 Creatinine 0.93 mg/dL (0.70-1.30) 12/09/24 05:30 Glucose 79 mg/dL (74-106) 12/09/24 05:30 Phosphorus 4.3 mg/dL (2.5-4.9) 12/09/24 05:30 Magnesium 2.1 mg/dL (1.6-2.4) 12/09/24 05:30 Total Bilirubin 0.5 mg/dL (0.2-1.0) 12/09/24 05:30 AST < 10 U/L (15-37) L 12/09/24 05:30 ALT 17 U/L (16-61) 12/09/24 05:30 Alkaline Phosphatase 47 U/L (45-117) 12/09/24 05:30 Home Medications: lisinopriL [Lisinopril] 20 mg PO DAILY 12/07/24 Hydrocort Acetate Suppos [Anucort-Hc Suppository*] 25 mg [place] DAILY 30 Days #1 supp 12/09/24 Pantoprazole [Protonix Tab*] 40 mg PO DAILYAC 30 Days #30 tab 12/09/24 New Medications: Hydrocort Acetate Suppos [Anucort-Hc Suppository*] 25 mg [place] DAILY 30 Days #1 supp Pantoprazole [Protonix Tab*] 40 mg PO DAILYAC 30 Days #30 tab Diet: Regular Followup: NONE,NONE [Primary Care Provider] -
--- NOTE | 2024-12-14 13:08 | CON ---
Date of Consultation: 12/07/2024 Reason For Consultation: Hematochezia with hemoglobin low at 5. History Of Present Illness: This patient is a 39-year-old male with history of hypertension, hyperlipidemia, and gastric bypass. The patient admitted to the hospital emergency room with hematochezia. The patient reports hematochezia for the past 10 years with a colonoscopy in 2022 in [place] that was negative. He thinks that his bleeding is due to hemorrhoids. It continues to happen recurrently. Most times, he has stools. He had a gastric bypass with hypertension, hyperlipidemia. He takes Excedrin daily for the last 2 days for headaches and has been doing so recurrently looks like for years and denies any abdominal pain, nausea, vomiting, hematemesis, coffee-ground emesis, fevers, chills, recent infection. He has a history of anemia and prior episodes of bleeding with this colonoscopy again in 2022 in [place], [place] that was negative. ER evaluation has hemoglobin of 5, hematocrit of 17, platelet count 485. Past Medical History: 1. Significant for recurrent hematochezia over the past 10 years, which he thinks is due to hemorrhoids with colonoscopy in 2022 that was negative. 2. Hypertension. 3. Hyperlipidemia. 4. Gastric bypass. 5. Elbow surgery. Social History: He is , 5 sons, 1 daughter. No tobacco, quit on September 20, 2024. He denies alcohol, quit on September 20, 2024. Family History: Father of what appears to be abdominal aortic aneurysm. Mother is alive, however, she is status post 2 strokes and history of diabetes and neuropathy. He has a paternal aunt with AAA as well. Home Medications: Include lisinopril, Anucort suppositories for hemorrhoids, Protonix. Allergies: NKDA. Review of Systems: The patient has hematochezia. Denies any melena, hematemesis, coffee-ground emesis, hemoptysis, epistaxis, hematuria, dysuria, polydipsia, muscle aches, joint aches, backaches, chest pain, shortness of breath, seizure, syncope, depression, anxiety. Physical Examination: Vital Signs: The patient is 5 foot 6 inches, 196 pounds, BMI of 31.7 kg/m2. Temperature 98.9 degrees Fahrenheit, pulse 78, respirations 16, blood pressure 116/67, O2 saturation 98% to 100% on room air. HEENT: Normocephalic, atraumatic. Anicteric. Pupils equal, round, and reactive to light. Extraocular movements are intact. Oropharynx clear. Neck: Supple. No masses. Respirations: Clear to auscultation bilaterally. Cardiac: Regular rate and rhythm. Gastrointestinal: Positive bowel sounds. Soft, nontender, nondistended. No hepatosplenomegaly. Extremities: No clubbing, cyanosis, or edema. 2+ pulses. Neuro: Alert and oriented x3. Grossly nonfocal. 5/5 motor strength to light touch. Laboratory Data: The patient has white count of 6.2, hemoglobin 6.2, hematocrit 20, MCV of 67, platelet count 405. PT of 11.7, INR of 1.03, PTT of 26.1. The patient has sodium of 136, potassium 3.9, chloride 106, bicarb 26, BUN of 13, creatinine of 0.8, glucose 90, calcium 8.3, magnesium 2.1, total bilirubin 0.5, AST of less than 10, ALT of 17, alkaline phosphatase is 14, total protein 6.4, albumin 3.2, B12 of 236, normal. UA is negative. Chest x-ray was negative. Impression: 1. Hematochezia over the past 10 years, now admitted to the hospital with severe anemia. Last colonoscopy in 2022 was negative by report. The patient believes he has bleeding from hemorrhoids, will need to be investigated with endoscopies, however. 2. Anemia. Hemoglobin down to 5.0, severe, only source of bleeding seems to be hematochezia on each investigation with colonoscopy and EGD. 3. The patient has history of gastric bypass, hypertension, hyperlipidemia, elbow surgery. Recommendations: 1. We will check iron numbers. 2. Serial H and H and transfuse p.r.n. 3. IV fluid resuscitation. 4. PPI therapy. 5. Colonoscopy and EGD. KELVIN/MICHOACANO Voice ID: [id number] Report ID: [id number] MTDD
== END 2024-12-09 13:29 | disposition home or self-care (01) | DRG 378 ==
LOC: ER 18:21 → ERHOLD 22:20 → 3RD-ICU 12-07 01:20
PROVIDERS: ADMIT Hospitalist; ATTEND Family Medicine
PROC: 30233N1 Transfusion of Nonautologous Red Blood Cells into Peripheral Vein, Percutaneous Approach (ICD-10-PCS; principal; 2024-12-06)
PROC: 30233N1 Transfusion of Nonautologous Red Blood Cells into Peripheral Vein, Percutaneous Approach (ICD-10-PCS; 2024-12-07)
PROC: 0DB88ZX Excision of Small Intestine, Via Natural or Artificial Opening Endoscopic, Diagnostic (ICD-10-PCS; 2024-12-08)
PROC: 0DJD8ZZ Inspection of Lower Intestinal Tract, Via Natural or Artificial Opening Endoscopic (ICD-10-PCS; 2024-12-08)
PROC: 0DB68ZX Excision of Stomach, Via Natural or Artificial Opening Endoscopic, Diagnostic (ICD-10-PCS; 2024-12-08 13:00)
DX: K29.01 Acute gastritis with bleeding (principal); D62 Acute posthemorrhagic anemia; I10 Essential (primary) hypertension; E78.5 Hyperlipidemia, unspecified; K64.8 Other hemorrhoids; Z98.84 Bariatric surgery status
CPT/HCPCS: 36415; 70450; 71045; 74250; 78278; 80048; 80053; 80076; 81003; 82607; 83540; 83735; 84100; 84484; 85014; 85018; 85025; 85044; 85610; 85730; 86140; 86850; 86900; 86901; 86920; 88304; 88305; 88312; 93005; 99283; A9560; J1642; J2003; J2470; J2704; J2765; J7030; J7050; J7120; P9016